=== PATIENT | female | born 1980 | race Caucasian/White ===

== ENCOUNTER → 2017-08-27 09:18 | Outpatient (CLI) | payer OTHER, MEDICAID, SELFPAY ==
--- NOTE | 2017-08-27 | DI.US.S_ITS ---
PROCEDURE: US ABDOMEN COMPLETE INDICATIONS: HEPATOMEGALY TECHNIQUE: Real-time scanning was performed of the abdominal and retroperitoneal organs, with image documentation. COMPARISON: [facility], CT, KIDNEY/ URETER/BLADDER, 12/04/2016, 12:27. FINDINGS: Liver: The liver is normal in size. Within the right hepatic lobe, there is a 2.2 x 2.0 x 2.1 cm structure that has a somewhat heterogeneous appearance, but is noted to be rounded, unchanged since the prior study. In the posterior segment of the right hepatic lobe there is also a 1.4 cm lesion identified, which is echogenic. Gallbladder: The gallbladder is surgically absent. Biliary ducts: Intrahepatic bile ducts are non-dilated. Extrahepatic bile duct caliber measures 7 mm. Normal is 6-7 mm or less in diameter, or 10 mm or less post-cholecystectomy. Pancreas: Visualized portions of the pancreas are sonographically normal. Spleen: The spleen is mildly enlarged at 12.5 cm in length. Kidneys: Kidneys are normal in size and echotexture. Right kidney measures 12.2 cm long; left kidney measures 11.4 cm long. No hydronephrosis or nephrolithiasis. No solid masses. Aorta: Visualized aorta is normal in caliber at less than 3 cm. Iliacs: Proximal common iliac arteries are normal in caliber at less than 2.5 cm. IVC: Intrahepatic inferior vena cava is patent. Miscellaneous: No free abdominal fluid. IMPRESSION: 1. Hepatic hemangiomas do not appear to have significantly changed in size. 2. Mild enlargement of the spleen. 2. No hydronephrosis. Dictated by: Carlito Pleitez M.D. on 08/27/2017 at 11:04 Approved by: Carlito Pleitez M.D. on 08/27/2017 at 11:06
== END ==
PROVIDERS: Family Provider Physician Assistant; PCP Physician Assistant; Visit Provider Internal Medicine Gastroenterology
DX: D18.03 Hemangioma of intra-abdominal structures (principal); R16.1 Splenomegaly, not elsewhere classified
CPT/HCPCS: 76700

== ENCOUNTER → 2017-12-18 13:40 | Outpatient (CLI) | payer OTHER, MEDICAID, SELFPAY ==
--- NOTE | 2017-12-18 | DI.MRI.S_ITS ---
PROCEDURE: MR ABDOMEN WO CON INDICATIONS: Lumbago with sciatica, abdomial pain TECHNIQUE: Coronal HASTE through the abdomen, axial 2-D FLASH in- and [id number], and breath-hold T2 FSE with fat saturation through the biliary system and pancreas. Oblique coronal and axial thin-slice HASTE, radial thick-slab HASTE centered on the extrahepatic bile ducts. Intravenous secretin: Not requested. COMPARISON: [facility], CT, ABDOMEN WITHOUT CONTRAST, 01/16/2016, 14:12. [facility], CT, ABDOMEN/PELVIS WITHOUT CONTRAS, 07/17/2016, 12:38. [facility], CT, KIDNEY/ URETER/BLADDER, 12/04/2016, 12:27. [facility], US, US ABDOMEN COMPLETE, 08/27/2017, 9:37. FINDINGS: Image quality: Excellent. Pancreas and biliary system: Intra- and extra-hepatic biliary ducts are non dilated. Pancreas is normal in morphology, without adjacent soft tissue edema. Pancreatic duct is normal in caliber, without developmental anomalies. Gallbladder appears previously resected. Other solid organs: Liver is normal in size. There is a high signal small focus within the right anterior hepatic segment superiorly measuring up to 1 cm, consistent with a small hemangioma by appearance and which can be identified on prior CT scanning including in January of 2016. Additionally there is a second fluid signal ovoid structure at the slightly more inferior left hepatic lobe medial segment anteriorly which is mildly lobulated and measures up to 2.2 cm. This also has been previously present without change management lead time on multiple prior CT scans and also seen by ultrasound Spleen is normal in size. No adrenal nodules. Both kidneys are normal in size, without hydronephrosis. Nodes and vessels: No retroperitoneal or mesenteric adenopathy by size criteria. Aorta and inferior vena cava are normal in size. Bowel and peritoneum: Unenhanced bowel loops are normal in caliber. No free fluid. Lung bases: No basal pleural effusions. Heart size is normal. Bones and soft tissues: No ventral hernias. Bone marrow is of normal overall signal. IMPRESSION: Prior cholecystectomy. No inflammatory process seen. Through the bile ducts no gallstone is suspected. A source of reported persistent abdominal pain is not found. Within the liver parenchyma there have been previously identified small cysts and what appears to be a single 1 cm hemangioma within the right anterior hepatic segment near the junction with the left medial hepatic segment. More inferiorly near the axial level of the left main portal vein there is a lobulated cyst measuring up to 2.2 cm which contains low-level internal echoes on prior ultrasound imaging. This structures have been present since at least January of 2016 without change and requiring no additional followup. Dictated by: Marshal Yun M.D. on 12/18/2017 at 16:29 Approved by: Marshal Yun M.D. on 12/18/2017 at 16:36
== END ==
PROVIDERS: PCP Student in an Organized Health Care Education/Training Program; Visit Provider Internal Medicine Gastroenterology
DX: R10.13 Epigastric pain (principal); M54.40 Lumbago with sciatica, unspecified side; K76.89 Other specified diseases of liver; Z90.49 Acquired absence of other specified parts of digestive tract
CPT/HCPCS: 74181

== ENCOUNTER → 2018-02-02 17:03 | Outpatient (CLI) | payer OTHER, MEDICAID, SELFPAY ==
--- NOTE | 2018-02-02 17:06 | DI.MRI.S_ITS ---
PROCEDURE: MR LUMBAR SPINE WO CON INDICATIONS: OTHER INTERVERTEBRAL DISC DEGENERATION, LUMB REG TECHNIQUE: Noncontrast sagittal T1 spin echo and T2 fast echo, sagittal STIR, axial T1 and T2 fast spin echo through the lumbar spine. In cases with scoliosis, additional coronal T2 fast spin echo may be performed. COMPARISON: [facility], MR, L-SPINE WITHOUT CONTRAST, 02/29/2016, 16:37. FINDINGS: Image quality: Excellent. Alignment and Curvature: There is normal bony alignment. Bone Marrow: Marrow is of normal overall signal. No acute vertebral body compression fractures. Spinal Cord: Conus medullaris terminates at the L1-L2 level. Visualized cord demonstrates normal signal and size. Paraspinous Soft Tissues: No paravertebral masses. L1-L2: Normal appearance. L2-L3: Normal appearance. L3-L4: Normal appearance. L4-L5: Posterior annular fissure and broad-based posterior disc bulge. Bilateral facet arthropathy with ligamentum flavum hypertrophy. Moderate central canal narrowing, unchanged. There is also symmetric appearing partial effacement of the lateral recesses, unchanged. Mild left and right foraminal stenoses, slightly progressed on the right since the prior study. L5-S1: Broad-based posterior disc bulge and bilateral facet arthropathy. Mild canal narrowing which appears unchanged. Mild symmetric bilateral partial effacement of the lateral recesses as before. No foraminal stenoses IMPRESSION: Lower lumbar degenerative disc disease, with slight interval progression in mild right L4-L5 foraminal stenoses since 02/29/16. Elsewhere, grossly unchanged examination. Dictated by: Marko Whitaker M.D. on 02/03/2018 at 9:04 Approved by: Marko Whitaker M.D. on 02/03/2018 at 9:10
== END ==
PROVIDERS: PCP Student in an Organized Health Care Education/Training Program; Visit Provider Physical Medicine & Rehabilitation
DX: M51.36 Other intervertebral disc degeneration, lumbar region (principal); M48.061 Spinal stenosis, lumbar region without neurogenic claudication
CPT/HCPCS: 72148

== ENCOUNTER 2018-02-23 08:54 | Outpatient (CLI) | payer OTHER, SELFPAY ==
[2018-02-23] VITALS (7 sets, daily range): BP systolic 101–125; BP diastolic 43–89; PULSE 72–91; RESP 16–18; TEMP 37.1; O2SAT 98–100
--- NOTE | 2018-02-23 08:56 | DI.RAD.S_ITS ---
PROCEDURE: PAIN L/S TRANSFORAMINAL INJECT INDICATIONS: INTERVERTEBRAL DISC DEGENERATION FINDINGS: Fluoroscopic spot filming was performed to verify placement of spinal needles at the L4-L5 level(s), as labeled on the films. Appropriate location(s) of the needle tip(s) was confirmed by injection of iodinated contrast. Dictated by: Marko Whitaker M.D. on 02/23/2018 at 16:32 Approved by: Marko Whitaker M.D. on 02/23/2018 at 16:33
[2018-02-23] MEDS: MIDAZOLAM 5 MG/5 ML VIAL IV (09:55)
[2018-02-23] MEDS: IOPAMIDOL 15 ML VIAL 3 ML INJ (10:03)
[2018-02-23] MEDS: BUPIVACAINE 0.25% (PF) VIAL 2 ML INJ (10:04)
[2018-02-23] MEDS: DEXAMETHASONE 10 MG/ML VIAL 20 MG INJ (10:05)
[2018-02-23] MEDS: methylPREDNISolone acetate 80 MG/ML VIAL INJ (10:05)
--- NOTE | 2018-02-23 10:16 | PM.PROC.1 ---
Procedures Date/Time Date of procedure: 02/23/18 Time of procedure: 10:16 General Procedure description: PREOP DIAGNOSIS 1. FORMAINAL STENOSIS WITH LE SYMPTOMS POST OP DIAGNOSIS 1. FORMAINAL STENOSIS WITH LE SYMPTOMS PROCEDURES 1. FLUOROSCOPICALLY GUIDED CONTRAST CONTROLLED TRANSFORAMINAL EPIDURAL STEROID INJECTION - RIGHT L4/5 TFESI PHYSICIAN: Stephan Carrillo DO INDICATIONS: Amish is referred by for treatment of HNP with Right LE Symptoms FINDINGS Foraminal Nerve Root Compression secondary to disc disease and facet hypertrophy DESCRIPTION OF PROCEDURE: Following denial of allergy and review of potential side effects and complications, including, but not necessarily limited to, infection, allergic reaction, local tissue breakdown, stroke, temporary or permanent nerve injury, paralysis, and possible , the patient indicated that the patient understood and agreed to proceed. An informed consent document was signed by the patient, witnessed by a nurse, and placed in the patient's chart. Additionally, other treatment options including medications, modalities, and physical therapy were reviewed with the patient. After review of previous anaesthesic history and IV conscious sedation the patient was deemed safe to proceed with todays procedure with IV conscious sedation as ASA class II designation. Safety time-out was performed to confirm patient ID, procedure to be performed and site of procedure. IV sedation was accomplished with a combination of 4mg of Versed was administered by the RN after DO order, titrated to patient comfort during the course of the procedure while the patient remained responsive to all verbal commands In the prone position following sterile prep and drape of the lumbar region, the Right L4/5 posterior neuroforamen was identified fluoroscopically. The skin was anesthetized via a 25-gauge 1.5-inch needle with 1% lidocaine solution. At this point, a 25-gauge 3.5-inch spinal needle was atraumatically introduced and advanced under fluoroscopic guidance through the posterior Right L4/5 neuroforamen to approximately the anterior aspect of the canal. Depth was confirmed on lateral view. Following negative aspiration, injection of approximately 1.5 cc of Isovue 200 under live fluoroscopy in the AP view confirmed excellent flow along the nerve root, into the epidural space without vascular or intrathecal uptake observed Radiological data, including multiple fluoroscopic views of the lumbosacral spine, reveal a spinal needle at the right L4/5 posterior neuroforamen. Subsequent views show flow of contrast material flowing superiorly and inferiorly along the nerve root confirming epidural flow. Subsequently, a test dose of 1.5 cc of 1% lidocaine solution was administered and patient was observed for two minutes for signs or symptoms of complications, including abdominal pain, shortness of breath, bilateral upper or lower extremity weakness, nausea and vomiting, prior to steroid injection. At this point, a total of 3 cc or 20 mg of dexamethasone and 80mg Depo Medrol was injected without incident. The procedure tolerated the procedure well without signs or symptoms of complications prior to transfer to the recovery area continued monitoring without incident.The patient was then transferred to the recovery area where they were observed for an appropriate time after the injection. The patient reported a VAS score of 7 prior to the procedure and a post-procedure VAS of 0. Total Fluoroscopy Time: 20.9 seconds Total Conscious Sedation Time: 24min POST OP INSTRUCTIONS The patient was provided a Pain Log to continue to record their response to the target-specific procedure prior to follow-up visit with their referring physician. Additionally, specific post-injection care instructions and a contact number to our office were provided if concerns arise regarding possible complications associated with the procedure are suspected. Stephan Carrillo DO Complications: none
--- NOTE | 2018-02-23 11:04 | P.PCN_ITS ---
Procedures Date/Time Date of procedure: 02/23/18 Time of procedure: 11:03 General Procedure description: PREOP DIAGNOSIS 1. FORMAINAL STENOSIS WITH LE SYMPTOMS POST OP DIAGNOSIS 1. FORMAINAL STENOSIS WITH LE SYMPTOMS PROCEDURES 1. FLUOROSCOPICALLY GUIDED CONTRAST CONTROLLED TRANSFORAMINAL EPIDURAL STEROID INJECTION - RIGHT L4/5 TFESI PHYSICIAN: Stephan Carrillo DO INDICATIONS: Amish is referred by for treatment of Foraminal Stenosis with Right LE Symptoms FINDINGS Foraminal Nerve Root Compression secondary to disc disease and facet hypertrophy DESCRIPTION OF PROCEDURE: Following denial of allergy and review of potential side effects and complications, including, but not necessarily limited to, infection, allergic reaction, local tissue breakdown, stroke, temporary or permanent nerve injury, paralysis, and possible , the patient indicated that the patient understood and agreed to proceed. An informed consent document was signed by the patient, witnessed by a nurse, and placed in the patient's chart. Additionally, other treatment options including medications, modalities, and physical therapy were reviewed with the patient. After review of previous anaesthesic history and IV conscious sedation the patient was deemed safe to proceed with todays procedure with IV conscious sedation as ASA class II designation. Safety time-out was performed to confirm patient ID, procedure to be performed and site of procedure. IV sedation was accomplished with a combination of 4mg of Versed was administered by the RN after DO order, titrated to patient comfort during the course of the procedure while the patient remained responsive to all verbal commands In the prone position following sterile prep and drape of the lumbar region, the Right L4/5 posterior neuroforamen was identified fluoroscopically. The skin was anesthetized via a 25-gauge 1.5-inch needle with 1% lidocaine solution. At this point, a 25-gauge 3.5-inch spinal needle was atraumatically introduced and advanced under fluoroscopic guidance through the posterior Right L4/5 neuroforamen to approximately the anterior aspect of the canal. Depth was confirmed on lateral view. Following negative aspiration, injection of approximately 1.5 cc of Isovue 200 under live fluoroscopy in the AP view confirmed excellent flow along the nerve root, into the epidural space without vascular or intrathecal uptake observed Radiological data, including multiple fluoroscopic views of the lumbosacral spine, reveal a spinal needle at the right L4/5 posterior neuroforamen. Subsequent views show flow of contrast material flowing superiorly and inferiorly along the nerve root confirming epidural flow. Subsequently, a test dose of 1.5 cc of 1% lidocaine solution was administered and patient was observed for two minutes for signs or symptoms of complications , including abdominal pain, shortness of breath, bilateral upper or lower extremity weakness, nausea and vomiting, prior to steroid injection. At this point, a total of 3 cc or 20 mg of dexamethasone and 80mg Depo Medrol was injected without incident. The procedure tolerated the procedure well without signs or symptoms of complications prior to transfer to the recovery area continued monitoring without incident.The patient was then transferred to the recovery area where they were observed for an appropriate time after the injection. The patient reported a VAS score of 7 prior to the procedure and a post- procedure VAS of 0. Total Fluoroscopy Time: 20.9 seconds Total Conscious Sedation Time: 24min POST OP INSTRUCTIONS The patient was provided a Pain Log to continue to record their response to the target-specific procedure prior to follow-up visit with their referring physician. Additionally, specific post-injection care instructions and a contact number to our office were provided if concerns arise regarding possible complications associated with the procedure are suspected. Stephan Carrillo DO Complications: none
--- NOTE | 2018-02-23 12:29 | PC.NURSE ---
procedure ended at 10:11 and pt assisted off table with 2 persons standby, her right leg was still a little numb. She was then transferred via W/C to preprocedure room where care was resumed by Alicia LORENZANA.
--- NOTE | 2018-02-24 16:46 | PC.NURSE ---
Follow up call made but pt not available so I left a message to call the office is she has any questions or concerns.
== END 2018-02-23 11:22 | disposition home or self-care (01) ==
LOC: RAD 08:55
PROVIDERS: PCP Student in an Organized Health Care Education/Training Program; Visit Provider Physical Medicine & Rehabilitation
DX: M48.061 Spinal stenosis, lumbar region without neurogenic claudication (principal); M51.16 Intervertebral disc disorders with radiculopathy, lumbar region
CPT/HCPCS: 64483; 99152; J1040; J1100; J2250

== ENCOUNTER → 2018-04-28 16:17 | Outpatient (CLI) | payer OTHER, SELFPAY ==
[2018-04-28 16:28] LABS: Bacteria Urine None Seen; RBC Urine None Seen (0-5/HPF)
[2018-04-28 17:38] LABS: Appearance Urine UA CLEAR; Bilirubin Urine UA NEGATIVE (NEGATIVE); Color Urine UA YELLOW; Glucose Urine UA NEGATIVE (Negative); Ketones Urine UA NEGATIVE (NEGATIVE); Leukocyte Esterase Urine UA NEGATIVE (NEGATIVE); Nitrite Urine UA NEGATIVE (Negative); Occult Blood Urine UA NEGATIVE (Negative); Protein Urine UA NEGATIVE (Negative); Specific Gravity Urine UA >=1.030 (1.000-1.035); Urobilinogen Urine UA 0.2 E.U./dL (0.2)
[2018-04-28 17:45] LABS: Squamous Epithelial Cell Urine 5-10 /HPF; WBC Urine 1-5/HPF (0-5/HPF)
[2018-04-28 17:46] LABS: Culture Indicated Urine Cult Not Indicated
[2018-04-28 18:07] LABS: Alanine Aminotransferase 25 IU/L (9-52); Albumin 4.2 g/dL (3.5-5.0); Albumin Globulin Ratio 1.8 (1.0-2.8); Alkaline Phosphatase 64 U/L (38-126); Aspartate Aminotransferase 11 IU/L (14-36); BUN Creatinine Ratio 17.1 (6-22); Bilirubin Total < 0.1 mg/dL (0.2-1.3); Blood Urea Nitrogen 12 mg/dL (7-17); Calcium 9.1 mg/dL (8.4-10.2); Carbon Dioxide 28 mmol/L (22-32); Chloride 101 mmol/L (98-107); Estimated Glomerular Filt Rate > 60.0 mL/min (>60); Globulin 2.4 g/dL (1.7-4.1); Glucose 83 mg/dL (70-100); HEMOLYSIS < 15 (0-50); Potassium 4.3 mmol/L (3.4-5.1); Sodium 141 mmol/L (137-145); Total Protein 6.6 g/dL (6.3-8.2)
== END ==
PROVIDERS: PCP Student in an Organized Health Care Education/Training Program; Visit Provider Internal Medicine Gastroenterology
DX: R35.0 Frequency of micturition (principal)
CPT/HCPCS: 36415; 80053; 81001; 83036

== ENCOUNTER → 2018-07-09 09:54 | Outpatient (CLI) | payer OTHER, SELFPAY ==
--- NOTE | 2018-07-09 09:56 | DI.US.S_ITS ---
PROCEDURE: US ABDOMEN COMPLETE INDICATIONS: FOLLOW UP KNOWN LESIONS ON LIVER AND KIDNEYS TECHNIQUE: Real-time scanning was performed of the abdominal and retroperitoneal organs, with image documentation. COMPARISON: [facility], MR, MR ABDOMEN WO CON, 12/18/2017, 14:08. [facility], CT, KIDNEY/ URETER/BLADDER, 12/04/2016, 12:27. FINDINGS: Liver: The liver demonstrates a coarse echotexture throughout. A hypoechoic mass is present within the right hepatic lobe which measures 2.2 x 1.7 x 2.2 cm and previously measured 2.2 x 2.0 x 2.1 cm on the ultrasound dated 08/2017). A focal hyperechoic mass within the posterior right hepatic lobe measures 0.6 x 0.4 x 0.4 cm and previously measured 1.4 x 1.0 x 1.0 cm. These most likely represent hepatic hemangiomas. Gallbladder: The gallbladder is surgically absent. Biliary ducts: Intrahepatic bile ducts are non-dilated. Extrahepatic bile duct caliber measures 8 mm. Normal is 6-7 mm or less in diameter, or 10 mm or less post-cholecystectomy. Pancreas: Visualized portions of the pancreas are sonographically normal. Spleen: Spleen is normal in size and homogeneous in echotexture. A small splenule is present at the splenic hilum. Kidneys: Kidneys are normal in size and echotexture. Right kidney measures 12.8 cm long; left kidney measures 11.7 cm long. No hydronephrosis or nephrolithiasis. No solid masses. Aorta: Visualized aorta is normal in caliber at less than 3 cm. Iliacs: Proximal common iliac arteries are normal in caliber at less than 2.5 cm. IVC: Intrahepatic inferior vena cava is patent. Miscellaneous: No free abdominal fluid. IMPRESSION: 1. Stable hepatic hemangiomas. No further followup recommended. Otherwise unremarkable abdominal ultrasound. Dictated by: Taryn Tamayo M.D. on 07/09/2018 at 17:26 Approved by: Taryn Tamayo M.D. on 07/09/2018 at 17:31
== END ==
LOC: US 09:55
PROVIDERS: PCP Student in an Organized Health Care Education/Training Program; Visit Provider Student in an Organized Health Care Education/Training Program
DX: D18.09 Hemangioma of other sites (principal); K92.2 Gastrointestinal hemorrhage, unspecified; R16.0 Hepatomegaly, not elsewhere classified; N28.89 Other specified disorders of kidney and ureter
CPT/HCPCS: 76700

== ENCOUNTER → 2019-07-27 09:42 | Outpatient (CLI) | payer OTHER, SELFPAY ==
[2019-07-27 11:48] LABS: BUN Creatinine Ratio 11.3 (6-22); Blood Urea Nitrogen 8 mg/dL (7-17); Estimated Glomerular Filt Rate > 60.0 mL/min (>60)
== END ==
PROVIDERS: PCP Student in an Organized Health Care Education/Training Program; Referring Provider Student in an Organized Health Care Education/Training Program; Visit Provider Student in an Organized Health Care Education/Training Program
DX: Z79.899 Other long term (current) drug therapy (principal)
CPT/HCPCS: 36415; 82565; 84520

== ENCOUNTER → 2020-09-24 18:52 | Outpatient (CLI) | payer OTHER, SELFPAY ==
--- NOTE | 2020-09-24 18:54 | DI.MRI.S_ITS ---
PROCEDURE: MR WRIST RT WO CON INDICATIONS: Eval recent injury; L I claim [id number] TECHNIQUE: Noncontrast coronal proton density fast spin echo and T2 fast spin echo with fat saturation; coronal 3-D gradient echo, axial T1 spin echo and T2 fast spin echo with fat saturation, sagittal T1 spin echo through the wrist. COMPARISON: [facility], MR, WRIST WITHOUT CONTRAST, 10/09/2011, 15:31. FINDINGS: Image quality: Excellent. Bones and cartilage: The carpal bones are normally aligned. No acute bone marrow contusions or fractures. No evidence for avascular necrosis. Mild degenerative spurring is seen at the 1st carpometacarpal joint. Small focus of T2-hyperintense signal at the proximal ulnar aspect of the lunate is most likely degenerative, although a mild subacute or chronic impaction injury could appear similarly. There is minimal negative ulnar variance. Focal cartilage loss is seen at the hamatolunate articulation without edema. Carpal ligaments: The scapholunate and lunotriquetral ligaments appear intact. Triangular fibrocartilage complex: The triangular fibrocartilage appears intact. Tendons and soft tissues: The carpal tunnel structures appear normal, including the median nerve. The ulnar nerve appears normal within Guyon's canal. There is moderate tendinosis of the extensor pollicis brevis tendon. The abductor pollicis longus tendon is normal in size within the 1st compartment. There is also increased signal within the extensor pollicis longus tendon in the 3rd compartment, compatible with tendinosis. The extensor carpi ulnaris tendon is flattened with minimal volar subluxation, compatible with tendinosis and possible prior injury to the subsheath. No raul tendon dislocation is seen. No soft tissue ganglion cysts. IMPRESSION: 1. Moderate tendinosis of the extensor pollicis brevis tendon. 2. Mild tendinosis of the extensor pollicis longus tendon. 3. Moderate extensor carpi ulnaris tendinosis with slight volar subluxation that may indicate a prior injury to the subsheath. The appearance is similar when compared to the prior MRI from 10/09/2011. 4. Mild degenerative changes at the 1st carpometacarpal joint Dictated by: Maximo Jorge M.D. on 09/25/2020 at 8:37 Approved by: Maximo Jorge M.D. on 10/04/2020 at 11:51
== END ==
PROVIDERS: PCP Student in an Organized Health Care Education/Training Program; Referring Provider Student in an Organized Health Care Education/Training Program; Visit Provider Student in an Organized Health Care Education/Training Program
DX: S69.91XA Unspecified injury of right wrist, hand and finger(s), initial encounter (principal); X58.XXXA Exposure to other specified factors, initial encounter
CPT/HCPCS: 73221

== ENCOUNTER → 2020-12-31 09:53 | Outpatient (CLI) | payer OTHER, SELFPAY ==
--- NOTE | 2020-12-31 09:55 | DI.RAD.S_ITS ---
PROCEDURE: XR CERVICAL SPINE 4V OR 5V INDICATIONS: NECK PAIN TECHNIQUE: 5 views of the cervical spine acquired. COMPARISON: None. FINDINGS: Bones: No fractures or dislocations to the C7 level. Oblique images demonstrate no bony foraminal stenoses. Soft tissues: No prevertebral soft tissue swelling. IMPRESSION: No acute abnormality. Dictated by: Osmany Lan M.D. on 12/31/2020 at 11:04 Approved by: Osmany Lan M.D. on 12/31/2020 at 11:05
--- NOTE | 2020-12-31 09:55 | DI.RAD.S_ITS ---
PROCEDURE: XR SHOULDER RT MIN 2V INDICATIONS: RIGHT SHOULDER PAIN TECHNIQUE: 3 views of the shoulder were acquired. COMPARISON: [facility] [place], CR, XR SHOULDER MIN 2VW RT, 07/13/2015, 12:07. FINDINGS: Bones: No fractures or dislocations. Mild acromioclavicular joint osteoarthritic changes are seen. No suspicious bony lesions. Visualized ribs appear intact. Soft tissues: No suspicious soft tissue calcifications. IMPRESSION: Mild acromioclavicular joint osteoarthritis. No shoulder fracture or dislocation. No gross soft tissue abnormality. Dictated by: Navin Henderson M.D. on 12/31/2020 at 11:21 Approved by: Navin Henderson M.D. on 12/31/2020 at 11:21
== END ==
PROVIDERS: PCP Student in an Organized Health Care Education/Training Program; Referring Provider Physical Medicine & Rehabilitation; Visit Provider Physical Medicine & Rehabilitation
DX: M25.511 Pain in right shoulder (principal); M19.011 Primary osteoarthritis, right shoulder; M75.41 Impingement syndrome of right shoulder; M50.30 Other cervical disc degeneration, unspecified cervical region; M51.36 Other intervertebral disc degeneration, lumbar region; S69.91XD Unspecified injury of right wrist, hand and finger(s), subsequent encounter
CPT/HCPCS: 20611; 72050; 73030; 99215; J0702

== ENCOUNTER → 2021-02-06 13:17 | Outpatient (CLI) | payer OTHER, SELFPAY ==
[2021-02-06 14:35] LABS: Add Manual Diff / Slide Review NO; Basophils Absolute Auto 100 /uL (0-100); Basophils Percent Auto 0.7 % (0-2); Eosinophils Absolute Auto 300 /uL (0-450); Eosinophils Percent Auto 2.9 % (2-4); Hematocrit 39.7 % (36-46); Hemoglobin 13.5 g/dL (12.0-16.0); Lymphocytes Absolute Auto 2600 /uL (1100-4500); Lymphocytes Percent Auto 26.6 % (25-40); Mean Corpuscular HGB Conc 34.1 % (30-36); Mean Corpuscular Hemoglobin 30.2 PG (26-34); Mean Corpuscular Volume 88.7 fL (80-100); Monocytes Absolute Auto 700 /uL (0-900); Monocytes Percent Auto 7.7 % (3-14); Neutrophils Absolute Auto 6000 /uL (1500-7000); Neutrophils Percent Auto 62.1 % (50-75); Platelet Count 302 X10^3/uL (150-400); Red Blood Cell Count 4.48 X10^6/uL (4.0-5.2); Red Cell Distribution Width 13.4 % (11.6-14.8); White Blood Cell Count 9.6 X10^3/uL (4.5-11.0)
[2021-02-06 14:59] LABS: Bilirubin Urine UA NEGATIVE (NEGATIVE); Color Urine UA RED; Glucose Urine UA NEGATIVE (Negative); Ketones Urine UA NEGATIVE (NEGATIVE); Leukocyte Esterase Urine UA TRACE (NEGATIVE); Nitrite Urine UA NEGATIVE (Negative); Occult Blood Urine UA 3+ (Negative); Protein Urine UA 3+ (Negative); Specific Gravity Urine UA >=1.030 (1.000-1.035); Urobilinogen Urine UA 0.2 E.U./dL (0.2)
[2021-02-06 15:00] LABS: pH Urine UA 5.5 (4.5-8.0)
[2021-02-06 15:03] LABS: Appearance Urine UA OTHER
[2021-02-06 15:05] LABS: RBC Urine >100/HPF (0-5/HPF); WBC Urine 1-5/HPF (0-5/HPF)
[2021-02-06 15:06] LABS: Amorphous Sediment Urine 1+; Bacteria Urine Occasional (0-1); Culture Indicated Urine Specimen Cultured; Squamous Epithelial Cell Urine 5-10 /HPF (0-5/HPF)
== END ==
PROVIDERS: PCP Student in an Organized Health Care Education/Training Program; Referring Provider Obstetrics & Gynecology; Visit Provider Obstetrics & Gynecology
DX: R53.83 Other fatigue (principal); R35.0 Frequency of micturition; R30.0 Dysuria
CPT/HCPCS: 36415; 81001; 85025; 87086

== ENCOUNTER 2021-03-06 15:28 | Emergency (ER) | payer OTHER, SELFPAY ==
[2021-03-06 15:35] VITALS: BP 138/64; PULSE 97; RESP 15; TEMP 36.8; O2SAT 100; BMI 25.0
[2021-03-06 16:05] LABS: COVID19 -Nasal RAPID Negative (Negative)
[2021-03-06 19:27] VITALS: BP 108/70; PULSE 81; TEMP 36.7; O2SAT 99
[2021-03-06 21:07] LABS: Add Manual Diff / Slide Review NO; Basophils Absolute Auto 100 /uL (0-100); Basophils Percent Auto 0.6 % (0-2); Eosinophils Absolute Auto 200 /uL (0-450); Eosinophils Percent Auto 2.4 % (2-4); Hematocrit 42.1 % (36-46); Hemoglobin 13.9 g/dL (12.0-16.0); Lymphocytes Absolute Auto 2300 /uL (1100-4500); Lymphocytes Percent Auto 25.5 % (25-40); Mean Corpuscular HGB Conc 33.1 % (30-36); Mean Corpuscular Hemoglobin 29.8 PG (26-34); Mean Corpuscular Volume 89.9 fL (80-100); Monocytes Absolute Auto 400 /uL (0-900); Monocytes Percent Auto 4.1 % (3-14); Neutrophils Absolute Auto 6100 /uL (1500-7000); Neutrophils Percent Auto 67.4 % (50-75); Red Blood Cell Count 4.68 X10^6/uL (4.0-5.2); Red Cell Distribution Width 13.4 % (11.6-14.8); White Blood Cell Count 9.1 X10^3/uL (4.5-11.0)
[2021-03-06 21:16] LABS: Alanine Aminotransferase 83 IU/L (<35); Albumin 4.4 g/dL (3.5-5.0); Albumin Globulin Ratio 1.5 (1.0-2.8); Alkaline Phosphatase 64 U/L (38-126); Aspartate Aminotransferase 40 IU/L (14-36); BUN Creatinine Ratio 25.4 (6-22); Bilirubin Total 0.4 mg/dL (0.2-1.3); Blood Urea Nitrogen 16 mg/dL (7-17); Carbon Dioxide 28 mmol/L (22-32); Chloride 106 mmol/L (98-107); Estimated Glomerular Filt Rate > 60.0 mL/min (>60); Globulin 2.9 g/dL (1.7-4.1); Glucose 99 mg/dL (70-100); HEMOLYSIS 61 (0-50); Potassium 4.2 mmol/L (3.4-5.1); Sodium 140 mmol/L (137-145); Total Protein 7.3 g/dL (6.3-8.2)
[2021-03-06 21:31] LABS: Platelet Count 154 X10^3/uL (150-400)
--- NOTE | 2021-03-06 21:49 | DI.CT.S_ITS ---
PROCEDURE: CT ABDOMEN PELVIS W CON INDICATIONS: severe abdomen and pelvic pain TECHNIQUE: After the administration of oral and IV contrast, axial sections were acquired from the lung bases to the pubic symphysis. Coronal and sagittal reformats were performed. For radiation dose reduction, the following was used: automated exposure control, adjustment of mA and/or kV according to patient size. COMPARISON: [facility], CT, KIDNEY/ URETER/BLADDER, 12/04/2016, 12:27. MR, MR ABDOMEN WO CON, 12/18/2017, 14:08. US, US ABDOMEN COMPLETE, 07/09/2018, 10:31. FINDINGS: Image quality: Excellent. Lung bases: Unremarkable. Heart: No significant findings. ABDOMEN: Liver: Liver is enlarged measuring 22.0 cm. Diffuse steatosis is present. Low-attenuation foci remain present within the liver as previously identified without change. Gallbladder: The gallbladder has been removed. Biliary ducts: Unremarkable. Pancreas: Unremarkable. Spleen: Unremarkable. Adrenal Glands: Unremarkable. Kidneys and Ureters: Unremarkable. Stomach and Bowel: Stomach, small bowel loops, and colon are unremarkable. The appendix is normal. Peritoneum: No abnormal intraperitoneal fluid. No free air. Ventral Wall: No hernia. Abdominal Nodes: No retroperitoneal or mesenteric adenopathy by size criteria. Vessels: Aorta and inferior vena cava are normal in size. PELVIS: Pelvic Organs: Unremarkable. Bladder: Unremarkable. Pelvic Nodes: No enlarged lymph nodes. Miscellaneous: No inguinal hernias are seen. Bones: Unremarkable. IMPRESSION: 1. No visualized acute abdominal or pelvic process. 2. Hepatomegaly with steatosis. Low-attenuation hepatic foci are unchanged compared to prior exams. Dictated by: Isabelle Long M.D. on 03/06/2021 at 23:02 Approved by: Isabelle Long M.D. on 03/06/2021 at 23:07
--- NOTE | 2021-03-06 21:49 | ED.FEMALEGU ---
HPI - Female Genitourinary General Chief complaint: Vaginal Bleeding Stated complaint: heavy vag bleeding, Covid + Time Seen by Provider: 03/06/21 19:07 Source: patient Mode of arrival: Ambulatory History of Present Illness HPI Narrative: 40-year-old female daily smoker with history of vaginal prolapse presents with a chief complaint of heavy vaginal bleeding and lower pelvic pain for many days. She states that over the course of that time she has been saturating over a pad per hour more often than not. She has significant pelvic pain persistently and certainly with any time she eats. She has a known history of prolapse and has been referred to the [facility]. She had spoken with her statistics teacher today and was encouraged to presents to the emergency department for further evaluation. She denies any runny nose, sore throat no fevers, chills or cough Related Data Home Medications Medication Instructions Recorded Confirmed sennosides 8.6 mg-docusate sodium 1 tab-cap PO DAILY cap 07/03/20 02/07/21 50 mg capsule (Senna Plus) tobramycin 0.3 %-dexamethasone 0.1 1 drp EYE-BOTH Q6H PRN ml 12/31/20 02/07/21 % eye drops,suspension Previous Rx's Medication Instructions Recorded albuterol sulfate 90 mcg/actuation 2 puff INHALATION QIDP PRN #18 gram 01/19/19 aerosol inhaler (Ventolin HFA) gabapentin 600 mg tablet 600 mg PO TID #270 tab 03/20/20 alprazolam 0.5 mg tablet 0.5 mg PO BID PRN #60 tab 07/28/20 methylphenidate HCl 10 mg tablet 10 mg PO BID #60 tab 02/28/21 methylphenidate HCl 20 mg tablet 20 mg PO BID #60 tab 02/28/21 oxycodone 5 mg tablet 5 mg PO Q4-6H PRN #10 tab 03/07/21 Allergies Allergy/AdvReac Type Severity Reaction Status Date / Time tramadol Allergy Mild Hives Verified 02/07/21 11:33 hydromorphone [From DILAUDID] Allergy Unknown Verified 02/07/21 11:33 iodine [IODINE] Allergy Unknown Verified 02/07/21 11:33 latex [LATEX] Allergy Unknown Verified 02/07/21 11:33 morphine [MORPHINE] Allergy Unknown Verified 02/07/21 11:33 ketamine Allergy Verified 03/06/21 15:35 amoxicillin [From Augmentin] AdvReac Unknown yeast Verified 02/07/21 11:33 infection clavulanic acid AdvReac Unknown yeast Verified 02/07/21 11:33 [From Augmentin] infection Patient History Medical History Anemia (~2001) Chronic back pain (Unknown) Degenerative disc disease (Unknown) Eczema (1999) Fractures (2007) GERD (gastroesophageal reflux disease) (Unknown) Hepatic hemangioma Hx of jordan (Unknown) Narcolepsy (Unknown) Rotator cuff impingement syndrome of right shoulder Shoulder pain (2014) Surgical History Hx of elbow surgery (~2013) Hx of wrist replacement (~2011) Status post laparoscopic cholecystectomy Status post tubal ligation Family History Child Age: 18 Asthma Heart disease Child Age: 16 ADHD (attention deficit hyperactivity disorder) Child Age: 13 History of developmental delay Father Stroke Diabetes mellitus Mental health problem Grandfather Age: 84 Emphysema/COPD Grandmother Age: 78 Cancer Hypertension Mental health problem Mother Age: 58 Asthma Sister Age: 37 Methamphetamine addiction Asthma alcohol intake frequency: holidays/special occasions only Substance Use Type: marijuana Exam Narrative Exam Narrative: GENERAL: [40 year old patient appears stated age. Well-developed patient, in mild distress. Tearful, clearly in pain HEAD: Atraumatic. Normocephalic. EYES: Pupils equal round and reactive. Extraocular motions intact. No scleral icterus. No injection or drainage. ENT: Nose without bleeding, purulent drainage. Throat without erythema, tonsillar hypertrophy or exudate. Airway patent. NECK: Trachea midline. Non tender CARDIOVASCULAR: Regular rate and rhythm without murmurs, gallops, or rubs. RESPIRATORY: Clear to auscultation. Breath sounds equal bilaterally. No wheezes, rales, or rhonchi. GASTROINTESTINAL: Abdomen soft, generally tender across the lower portion of her abdomen nondistended. EXTREMITIES: No edema or joint tenderness. BACK: Nontender without deformity or crepitance. No flank tenderness. NEURO: AOx3. SKIN: No rash or erythema of visible areas Initial Vital Signs Initial Vital Signs: Vital Signs Temperature 98.2 F 03/06/21 15:35 Pulse Rate 97 H 03/06/21 15:35 Respiratory Rate 15 03/06/21 15:35 Blood Pressure 138/64 03/06/21 15:35 Pulse Oximetry 100 03/06/21 15:35 Course Orders Ordered: ED Orders 03/06/21 20:20 Urine Culture Stat Urine Microscopic Stat 03/06/21 20:45 Complete Blood Count AUTO DIFF Stat Comprehensive Metabolic Panel Stat Type and Screen Stat 03/06/21 21:49 CT abdomen pelvis w con Stat 03/06/21 22:31 US pelvic complete Stat Discontinued Medications Diphenhydramine HCl (Diphenhydramine 50 Mg/Ml Vial) 25 mg IV NOW ONE Stop: 03/06/21 22:12 Last Admin: 03/06/21 22:18 Dose: 25 mg Documented by: GUIDO Hydromorphone HCl (Hydromorphone 0.5 Mg Inj) 0.5 mg IV NOW ONE Stop: 03/06/21 23:07 Last Admin: 03/06/21 23:10 Dose: 0.5 mg Documented by: GUIDO Sodium Chloride (Normal Saline 0.9%) 1,000 mls @ 1,000 mls/hr IV BOLUS ONE Stop: 03/06/21 22:48 Last Infusion: 03/06/21 23:50 Dose: 0 mls/hr Documented by: Admin: 03/06/21 21:57 Dose: 1,000 mls/hr Documented by: GUIDO Ketorolac Tromethamine (Ketorolac 30 Mg/Ml Vial) 15 mg IV NOW ONE Stop: 03/06/21 21:50 Last Admin: 03/06/21 22:01 Dose: 15 mg Documented by: GUIDO Methylprednisolone (Methylprednisolone 125 Mg/2 Ml Vial) 125 mg IV NOW ONE Stop: 03/06/21 22:12 Last Admin: 03/06/21 22:19 Dose: 125 mg Documented by: GUIDO Ondansetron HCl (Ondansetron 4 Mg/2 Ml Inj) 4 mg IV NOW ONE Stop: 03/06/21 21:50 Last Admin: 03/06/21 21:57 Dose: 4 mg Documented by: GUIDO Oxycodone/Acetaminophen (Oxycodone/Apap 5/325 Prepack) 1 bottle MISC SEEINSTR ONE Stop: 03/07/21 02:05 Last Admin: 03/07/21 02:07 Dose: 1 bottle Documented by: GUIDO Reevaluation(s) Reevaluation #1: Patient does report increased pain after pelvic ultrasound. She refuses pelvic exam, stating she would choose to defer to her OB doctor. Vital Signs Vital signs: Vital Signs - 8 hr 03/07/21 02:27 Pulse Rate 77 Respiratory Rate 16 Blood Pressure 136/57 L Pulse Oximetry 95 MDM - Female Genitourinary Lab Data Result diagrams: 03/06/21 20:45 03/06/21 20:45 Labs: Lab Results 03/06/21 03/06/21 03/06/21 Range/Units 15:38 20:20 20:45 WBC 9.1 (4.5-11.0) X10^3/uL RBC 4.68 (4.0-5.2) X10^6/uL Hgb 13.9 (12.0-16.0) g/dL Hct 42.1 (36-46) % MCV 89.9 (80-100) fL MCH 29.8 (26-34) PG MCHC 33.1 (30-36) % RDW 13.4 (11.6-14.8) % Plt Count 154 (150-400) X10^3/uL Neut % (Auto) 67.4 (50-75) % Lymph % (Auto) 25.5 (25-40) % [place] % (Auto) 4.1 (3-14) % Eos % (Auto) 2.4 (2-4) % Baso % (Auto) 0.6 (0-2) % Neut # (Auto) 6100 (4027-0624) /uL Lymph # (Auto) 2300 (3880-8852) /uL [place] # (Auto) 400 (0-900) /uL Eos # (Auto) 200 (0-450) /uL Baso # (Auto) 100 (0-100) /uL Sodium (137-145) mmol/L Potassium (3.4-5.1) mmol/L Chloride (98-107) mmol/L Carbon Dioxide (22-32) mmol/L BUN (7-17) mg/dL Creatinine (0.52-1.04) mg/dL Estimated GFR (>60) mL/min BUN/Creatinine Ratio (6-22) Glucose (70-100) mg/dL Calcium (8.4-10.2) mg/dL Total Bilirubin (0.2-1.3) mg/dL AST (14-36) IU/L ALT (<35) IU/L Alkaline Phosphatase (38-126) U/L Total Protein (6.3-8.2) g/dL Albumin (3.5-5.0) g/dL Globulin (1.7-4.1) g/dL Albumin/Globulin Ratio (1.0-2.8) Urine RBC 30-100/hpf H (0-5/HPF) Urine WBC 1-5/hpf (0-5/HPF) Ur Squamous Epith Cells 1-5 /hpf (0-5/HPF) Urine Bacteria Many (>30) H (None) Urine Mucus 1+ H (Negative) Ur Culture Indicated? Specimen cultured SARS-CoV-2 (PCR) Negative (Negative) Blood Type Antibody Screen 03/06/21 03/06/21 Range/Units 20:45 20:45 WBC (4.5-11.0) X10^3/uL RBC (4.0-5.2) X10^6/uL Hgb (12.0-16.0) g/dL Hct (36-46) % MCV (80-100) fL MCH (26-34) PG MCHC (30-36) % RDW (11.6-14.8) % Plt Count (150-400) X10^3/uL Neut % (Auto) (50-75) % Lymph % (Auto) (25-40) % [place] % (Auto) (3-14) % Eos % (Auto) (2-4) % Baso % (Auto) (0-2) % Neut # (Auto) (7306-7723) /uL Lymph # (Auto) (8362-8099) /uL [place] # (Auto) (0-900) /uL Eos # (Auto) (0-450) /uL Baso # (Auto) (0-100) /uL Sodium 140 (137-145) mmol/L Potassium 4.2 (3.4-5.1) mmol/L Chloride 106 (98-107) mmol/L Carbon Dioxide 28 (22-32) mmol/L BUN 16 (7-17) mg/dL Creatinine 0.63 (0.52-1.04) mg/dL Estimated GFR > 60.0 (>60) mL/min BUN/Creatinine Ratio 25.4 H (6-22) Glucose 99 (70-100) mg/dL Calcium 9.0 (8.4-10.2) mg/dL Total Bilirubin 0.4 (0.2-1.3) mg/dL AST 40 H (14-36) IU/L ALT 83 H (<35) IU/L Alkaline Phosphatase 64 (38-126) U/L Total Protein 7.3 (6.3-8.2) g/dL Albumin 4.4 (3.5-5.0) g/dL Globulin 2.9 (1.7-4.1) g/dL Albumin/Globulin Ratio 1.5 (1.0-2.8) Urine RBC (0-5/HPF) Urine WBC (0-5/HPF) Ur Squamous Epith Cells (0-5/HPF) Urine Bacteria (None) Urine Mucus (Negative) Ur Culture Indicated? SARS-CoV-2 (PCR) (Negative) Blood Type O Positive Antibody Screen Negative Point of Care Testing Test Results Negative Urine Dip Bedside Urine Glucose Negative Bedside Urine Bilirubin - Negative Bedside Urine Ketone - Negative Urine Specific [place] 1.030 Bedside Urine Occult Blood +++ Bedside Urine pH 6.0 Bedside Urine Protein ++ 100 Bedside Urine Urobilinogen - Negative Bedside Urine Nitrite - Negative Bedside Urine Leukocytes + [address] scan - abdomen/pelvis: Radiologist's Impression: [place] [address] CT Scan Report Signed Patient: Amish Tamez MR#: [id number] : 1980 Acct:[id number] Age/Sex: 40 / F Date of Service: 03/06/21 Loc: ED Accession Number: [id number] ?? Procedure: CT abdomen pelvis w con Ordering Provider: Baldemar Contreras D.O. PROCEDURE:? CT ABDOMEN PELVIS W CON ? INDICATIONS:? severe abdomen and pelvic pain ? TECHNIQUE:? After the administration of oral and IV contrast, axial sections were acquired from the lung bases to the pubic symphysis.? Coronal and sagittal reformats were performed.? For radiation dose reduction, the following was used:? automated exposure control, adjustment of mA and/or kV according to patient size. ? COMPARISON:? [facility], CT, KIDNEY/ URETER/BLADDER, 12/04/2016, 12:27.? MR, MR ABDOMEN WO CON, 12/18/2017, 14:08.? US, US ABDOMEN COMPLETE, 07/09/2018, 10:31. ? FINDINGS:? Image quality:? Excellent.? ? Lung bases:? Unremarkable.? ? Heart:? No significant findings. ? ? ABDOMEN: Liver:? Liver is enlarged measuring 22.0 cm.? Diffuse steatosis is present.? Low-attenuation foci remain present within the liver as previously identified without change. Gallbladder:? The gallbladder has been removed.? ? Biliary ducts:? Unremarkable.? ? Pancreas:? Unremarkable.? ? Spleen:? Unremarkable.? ? Adrenal Glands:? Unremarkable.? ? Kidneys and Ureters:? Unremarkable.? ? ? Stomach and Bowel:? Stomach, small bowel loops, and colon are unremarkable.? The appendix is normal. Peritoneum:? No abnormal intraperitoneal fluid.? No free air.? ? Ventral Wall: ? No hernia.? Abdominal Nodes:? No retroperitoneal or mesenteric adenopathy by size criteria.? Vessels:? Aorta and inferior vena cava are normal in size.? ? PELVIS: Pelvic Organs:? Unremarkable.? ? Bladder:? Unremarkable.? ? Pelvic Nodes: No enlarged lymph nodes.? Miscellaneous: No inguinal hernias are seen. ? ? ? Bones:? Unremarkable.? IMPRESSION:? ? 1. No visualized acute abdominal or pelvic process. ? 2. Hepatomegaly with steatosis.? Low-attenuation hepatic foci are unchanged compared to prior exams.? ? ? Dictated by: Isabelle Long M.D. on 03/06/2021 at 23:02 ? ? Approved by: Isabelle Long M.D. on 03/06/2021 at 23:07 ? US - MARKETING SYSTEMS MANAGER: Radiologist's Impression: [address] [address] Ultrasound Report Signed Patient: Amish Tamez MR#: [id number] : 1980 Acct:[id number] Age/Sex: 40 / F Date of Service: 03/06/21 Loc: ED Accession Number: [id number] ?? Procedure: US pelvic complete Ordering Provider: Baldemar Contreras D.O. PROCEDURE:? US PELVIC COMPLETE ? INDICATIONS:? PAIN, BLEEDING ? TECHNIQUE:? Real-time scanning was performed of the pelvic organs, with image documentation.? Additional endovaginal scanning was necessary due to incomplete visualization of the adnexal and endometrial structures by transabdominal scanning.? ? COMPARISON:? [facility], CT, CT ABDOMEN PELVIS W CON, 03/06/2021, 22:07. ? FINDINGS:? ?? Uterus:? Uterus is anteverted and normal in size at 9.4 x 4.7 x 5.2 cm. The myometrium is homogeneous. ? The endometrium measures 5.7 mm combined thickness.? Minimal fluid is present within the endometrial canal. ? Ovaries:? The right ovary measures 3.7 x 2.1 x 2.4 cm. The left ovary measures 2.8 x 1.5 x 1.5 cm. The ovaries have a normal sonographic appearance. Less than 12 follicles can be seen in each ovary.? No adnexal masses are seen. ? Other:? No pathologic free abdominal or pelvic fluid. ? ? IMPRESSION:? ? 1. Mild fluid within the endometrial canal, likely physiologic.? Otherwise, unremarkable exam. ? We strive to produce accurate, complete, and clear reports of imaging services. To assist us in improving patient care, this report was composed using standard report templates and voice recognition software. Therefore, it may contain abnormal punctuation, insertions and/or omissions. Occasional wrong-word or sound-alike substitutions may occur. Though we review the report and make efforts to correct it, we do recommend that the report be read carefully in proper context to recognize any text inaccuracies. ? ? Dictated by: Isabelle Long M.D. on 03/07/2021 at 0:08 ? ? Approved by: Isabelle Long M.D. on 03/07/2021 at 0:10 ? MDM Narrative Medical decision making narrative: 40-year-old female with chronic pelvic pain and known report of prolapse. She reports vaginal bleeding, heavy at times but no significance on ultrasound, vital sign abnormalities, H&H is stable. No significant findings on labs or imaging. Patient refused pelvic during exam giving increased discomfort. She states that she know she needs surgery for prolapse and would prefer not to have any more pelvic exams currently. She has been given return precautions and questions answered to her apparent satisfaction Discharge Plan Departure Patient Disposition: Home Clinical Impression: Pelvic pain, Abnormal vaginal bleeding Instructions: DI for Vaginal Bleeding, DI for Pelvic Pain Activity Restrictions/Additional Instructions: *You have been diagnosed with [pelvic pain and vaginal bleeding. Labs and imaging today are reassuring. *What to do: *Please continue to take your regular medications as directed. [ x] New medication prescriptions sent to your pharmacy: [[facility] in [place]] [ ] New medication written as a paper prescription [ ] No new medications given *Please follow up with your primary care provider in 2-3 days, call for an appointment. Let them know you were seen in the Emergency Department and that we ask that you be seen in follow up. We will electronically transmit a record of today's note if your PCP is in our system *If you do not have a primary care provider please contact the [facility] Resource line at [phone]. They will ask some questions about your medical history and help get you set up with a doctor in the community. *Return to Emergency Department if you should have any new, worsening or concerning symptoms, such as [fever greater than 101 F, shaking chills, worsening pain, persistent vomiting or other bothersome symptoms] Prescriptions: New oxycodone 5 mg tablet 5 mg PO Q4-6H PRN (Reason: pain) Qty: 10 0RF No Action gabapentin 600 mg tablet 600 mg PO TID Qty: 270 3RF Senna Plus 8.6-50 mg capsule 1 tab-cap PO DAILY 0RF alprazolam 0.5 mg tablet 0.5 mg PO BID PRN (Reason: anxiety) Qty: 60 0RF methylphenidate HCl 20 mg tablet 20 mg PO BID Qty: 60 0RF Rx Instructions: Total 30mg twice daily. methylphenidate HCl 10 mg tablet 10 mg PO BID Qty: 60 0RF Rx Instructions: Total 30mg twice daily. albuterol sulfate [Ventolin HFA] 90 mcg/actuation HFA aerosol inhaler 2 puff INHALATION QIDP PRN (Reason: shortness of breath or wheezing) Qty: 18 11RF tobramycin-dexamethasone 0.3-0.1 % drops,suspension 1 drp EYE-BOTH Q6H PRN0RF Referrals: Edi Segura MD [Primary Care Provider] - Stand Alone Forms: Work Release Note
[2021-03-06] MEDS: ONDANSETRON 4 MG/2 ML INJ IV (21:57)
[2021-03-06] MEDS: SODIUM CHLORIDE 0.9% 1,000 ML 1000 ML IV (21:57)
[2021-03-06] MEDS: KETOROLAC 30 MG/ML VIAL 15 MG IV (22:01)
[2021-03-06] MEDS: diphenhydrAMINE 50 MG/ML VIAL 25 MG IV (22:18)
[2021-03-06] MEDS: methylPREDNISolone 125 MG/2 ML VIAL IV (22:19)
[2021-03-06 22:21] LABS: Bacteria Urine Many (>30); Culture Indicated Urine Specimen Cultured; Mucus Urine 1+ (Negative); RBC Urine 30-100/HPF (0-5/HPF); Squamous Epithelial Cell Urine 1-5 /HPF (0-5/HPF); WBC Urine 1-5/HPF (0-5/HPF)
--- NOTE | 2021-03-06 22:31 | DI.US.S_ITS ---
PROCEDURE: US PELVIC COMPLETE INDICATIONS: PAIN, BLEEDING TECHNIQUE: Real-time scanning was performed of the pelvic organs, with image documentation. Additional endovaginal scanning was necessary due to incomplete visualization of the adnexal and endometrial structures by transabdominal scanning. COMPARISON: [facility], CT, CT ABDOMEN PELVIS W CON, 03/06/2021, 22:07. FINDINGS: Uterus: Uterus is anteverted and normal in size at 9.4 x 4.7 x 5.2 cm. The myometrium is homogeneous. The endometrium measures 5.7 mm combined thickness. Minimal fluid is present within the endometrial canal. Ovaries: The right ovary measures 3.7 x 2.1 x 2.4 cm. The left ovary measures 2.8 x 1.5 x 1.5 cm. The ovaries have a normal sonographic appearance. Less than 12 follicles can be seen in each ovary. No adnexal masses are seen. Other: No pathologic free abdominal or pelvic fluid. IMPRESSION: 1. Mild fluid within the endometrial canal, likely physiologic. Otherwise, unremarkable exam. We strive to produce accurate, complete, and clear reports of imaging services. To assist us in improving patient care, this report was composed using standard report templates and voice recognition software. Therefore, it may contain abnormal punctuation, insertions and/or omissions. Occasional wrong-word or sound-alike substitutions may occur. Though we review the report and make efforts to correct it, we do recommend that the report be read carefully in proper context to recognize any text inaccuracies. Dictated by: Isabelle Long M.D. on 03/07/2021 at 0:08 Approved by: Isabelle Long M.D. on 03/07/2021 at 0:10
[2021-03-06] MEDS: HYDROMORPHONE 0.5 MG INJ IV (23:10)
[2021-03-07] MEDS: OXYCODONE/APAP 5/325 PREPACK 1 BOTTLE MISC (02:07)
[2021-03-07 02:27] VITALS: BP 136/57; PULSE 77; RESP 16; O2SAT 95
== END 2021-03-07 02:28 | disposition home or self-care (01) ==
PROVIDERS: Emergency Medicine; Emergency Provider Emergency Medicine; PCP Student in an Organized Health Care Education/Training Program; Referring Provider Obstetrics & Gynecology
DX: R10.2 Pelvic and perineal pain (principal); N93.9 Abnormal uterine and vaginal bleeding, unspecified; Z20.822 Contact with and (suspected) exposure to COVID-19
CPT/HCPCS: 36415; 74177; 76830; 76856; 80053; 81003; 81015; 81025; 85025; 86850; 86900; 86901; 87086; 87635; 96361; 96374; 96375; 99284; C9803; J1170; J1200; J1885; J2405; J2930; Q9967

== ENCOUNTER → 2021-03-27 09:21 | Outpatient (CLI) | payer OTHER, SELFPAY ==
[2021-03-27 11:01] LABS: COVID19 -Nasal RAPID Negative (Negative)
== END ==
PROVIDERS: PCP Student in an Organized Health Care Education/Training Program; Visit Provider Nurse Practitioner Family
DX: Z20.822 Contact with and (suspected) exposure to COVID-19 (principal)
CPT/HCPCS: 87635

== ENCOUNTER → 2021-04-02 14:00 | Outpatient (CLI) | payer OTHER, SELFPAY ==
[2021-04-02 15:13] LABS: Add Manual Diff / Slide Review NO; Basophils Absolute Auto 100 /uL (0-100); Basophils Percent Auto 0.4 % (0-2); Eosinophils Absolute Auto 300 /uL (0-450); Eosinophils Percent Auto 2.1 % (2-4); Hematocrit 37.3 % (36-46); Hemoglobin 12.5 g/dL (12.0-16.0); Lymphocytes Absolute Auto 2300 /uL (1100-4500); Lymphocytes Percent Auto 18.2 % (25-40); Mean Corpuscular HGB Conc 33.4 % (30-36); Mean Corpuscular Hemoglobin 29.5 PG (26-34); Mean Corpuscular Volume 88.4 fL (80-100); Monocytes Absolute Auto 900 /uL (0-900); Monocytes Percent Auto 6.9 % (3-14); Neutrophils Absolute Auto 9200 /uL (1500-7000); Neutrophils Percent Auto 72.4 % (50-75); Platelet Count 263 X10^3/uL (150-400); Red Blood Cell Count 4.22 X10^6/uL (4.0-5.2); Red Cell Distribution Width 13.7 % (11.6-14.8); White Blood Cell Count 12.7 X10^3/uL (4.5-11.0)
== END ==
PROVIDERS: PCP Student in an Organized Health Care Education/Training Program; Referring Provider Student in an Organized Health Care Education/Training Program; Visit Provider Student in an Organized Health Care Education/Training Program
DX: N92.1 Excessive and frequent menstruation with irregular cycle (principal)
CPT/HCPCS: 36415; 85025

== ENCOUNTER 2021-12-01 01:55 | Emergency (ER) | payer OTHER, SELFPAY ==
[2021-12-01 02:01] VITALS: BP 117/56; PULSE 78; RESP 20; TEMP 36.3; O2SAT 98; BMI 25.4
--- NOTE | 2021-12-01 03:38 | ED.DENTAL ---
HPI - Dental/Oral General Chief complaint: Dental/Oral Stated complaint: RT. side bottom tooth pain/lost filling Time Seen by Provider: 12/01/21 03:37 Source: patient Mode of arrival: Ambulatory Limitations: no limitations History of Present Illness HPI Narrative: This is a 40-year-old female with pain at the right posterior bottom tooth and a filling that fell out in the past. Patient states that she is had some intermittent pain occasionally and has done swishes and spit with chlorhexidine which had been helpful until 2 days ago when she developed significant pain on the left side of her jaw does radiating towards her ear. Patient states last night and tonight was quite painful she is taken 3 doses of oxycodone orally this evening that she has from prescription and has not been particularly helpful. She denies fevers. She is had some nasal congestion and cough. Patient denies any vomiting. No swelling of the airway. Patient has not been able to see a dentist she did not have dental insurance until recently. She is on medications for chronic back pain, rectal and cystocele prolapse and adrenal issues that she takes methylphenidate. She has noted some foul taste from the site. She has not appreciated any redness, warmth or swelling of her face. She did recently have a dog bite and started Augmentin yesterday and has had 2 doses total. Related Data Previous Rx's Medication Instructions Recorded alprazolam 0.5 mg tablet 0.5 mg PO BID PRN anxiety #60 tabs 07/28/20 sennosides 8.6 mg-docusate sodium 1 tab-cap PO DAILY #30 caps 04/02/21 50 mg capsule (Senna Plus) gabapentin 600 mg tablet 600 mg PO TID #270 tabs 05/06/21 dexamethasone 0.1 % eye 2 drp EYE-BOTH BID #5 mL 10/31/21 drops,suspension medroxyprogesterone 10 mg tablet See Rx Instructions PO .COMPLEX 10/31/21 #100 tabs methylphenidate HCl 20 mg tablet 40 mg PO BID #120 tabs 10/31/21 mupirocin 2 % topical ointment 1 applic topical BID #15 grams 10/31/21 terbinafine HCl 250 mg tablet 250 mg PO DAILY 12 weeks #84 tabs 10/31/21 albuterol sulfate 90 mcg/actuation 2 puff inhalation QIDP PRN 11/27/21 aerosol inhaler (Ventolin HFA) shortness of breath or wheezing #18 grams amoxicillin 875 mg-potassium 1 tab PO BID #10 tabs 12/01/21 clavulanate 125 mg tablet Allergies Allergy/AdvReac Type Severity Reaction Status Date / Time tramadol Allergy Mild Hives Verified 10/31/21 07:48 hydromorphone [From DILAUDID] Allergy Unknown Verified 10/31/21 07:48 iodine [IODINE] Allergy Unknown Verified 10/31/21 07:48 latex [LATEX] Allergy Unknown Verified 10/31/21 07:48 morphine [MORPHINE] Allergy Unknown Verified 10/31/21 07:48 ketamine Allergy Verified 10/31/21 07:48 amoxicillin [From Augmentin] AdvReac Unknown yeast Verified 10/31/21 07:48 infection clavulanic acid AdvReac Unknown yeast Verified 10/31/21 07:48 [From Augmentin] infection Review of Systems Review of Systems ROS Unobtainable: All systems reviewed & are unremarkable except as noted in HPI and below Patient History Medical History Allergic conjunctivitis Anemia (~2001) Chronic back pain (Unknown) Degenerative disc disease (Unknown) Eczema (1999) Fractures (2007) GERD (gastroesophageal reflux disease) (Unknown) Hepatic hemangioma Hx of jordan (Unknown) Narcolepsy (Unknown) Rotator cuff impingement syndrome of right shoulder Shoulder pain (2014) Surgical History Hx of elbow surgery (~2013) Hx of wrist replacement (~2011) Status post laparoscopic cholecystectomy Status post tubal ligation Family History Child Age: 19 Asthma Heart disease Child Age: 17 ADHD (attention deficit hyperactivity disorder) Child Age: 14 History of developmental delay Father Stroke Diabetes mellitus Mental health problem Grandfather Age: 85 Emphysema/COPD Grandmother Age: 79 Cancer Hypertension Mental health problem Mother Age: 59 Asthma Sister Age: 38 Methamphetamine addiction Asthma Social History Smoking Status: Current every day smoker Smoking Status: Current every day smoker alcohol intake frequency: holidays/special occasions only Substance Use Type: does not use Exam Narrative Exam Narrative: GEN: well nourished, well appearing female, alert and oriented x 3, patient appears to be in moderate distress. HEENT: Atraumatic, pupils are equal round reactive to light, extraocular movements are intact, nares are clear, TMs are clear with no fluid, there is no conjunctival pallor. Throat is clear without any exudates, erythema, tonsillar enlargement or uvular deviation, poor dentition patient is missing a filling in her posterior molar on the left bottom. There is some slight swelling but no obvious fluctuance, no clear purulent drainage there is no obvious swelling of the face externally. Patient has tenderness over the tooth but is not tender on exam otherwise. No bony tenderness. No difficulty with secretions or swallowing. No swelling of the oropharynx. HEART: Regular rate and rhythm without murmur, clicks, rubs. LUNGS:Lungs clear to auscultation, no wheezes, rales, crackles, chest moves symmetrically ABD:bowel sounds normal, soft, non-tender, no guarding, rebound, rigidity, no masses noted, no hepatosplenomegaly MSCL: Non-tender, no muscle atrophy, muscles strength 5/5 upper and lower extremities, full range of motion, normal gait NEURO:CN 2-12 intact, sensation normal SKIN: No rash, erythema or other skin changes Initial Vital Signs Initial Vital Signs: Vital Signs Temperature 97.4 F L 12/01/21 02:01 Pulse Rate 78 12/01/21 02:01 Respiratory Rate 20 12/01/21 02:01 Blood Pressure 117/56 L 12/01/21 02:01 Pulse Oximetry 98 12/01/21 02:01 Oxygen Delivery Method 12/01/21 02:01 Procedures Nerve Block Nerve Block 1: Time of procedure: 04:00 Time out performed: Yes Local Anesthetic: bupivacaine 0.5% and with epi Amount of anesthesia used (mL): 1 Side: left Intraoral Nerve Block: inferior alveolar (buccal) Procedure Successful: Yes Patient Tolerated Procedure: Well Complications: none Additional Comments: Patient did have improvement pain but asked for a little bit localized right at the tooth itself which we did do and had improvement. Course Vital Signs Vital signs: Vital Signs - 8 hr 12/01/21 02:01 Temperature 97.4 F L Pulse Rate 78 Respiratory Rate 20 Blood Pressure 117/56 L Pulse Oximetry 98 Oxygen Delivery Method Room Air MDM - Dental/Oral MDM Narrative Medical decision making narrative: This is a 40-year-old female with dental pain, she does have some foul taste at the site no obvious fluctuance or area that can be easily drained. She otherwise has a reassuring exam. Dental block was performed patient did have improvement of pain. She has a prescription for Augmentin that she is started for 5 days for a dog bite and will extend this an additional 5 days. Discharge Plan Departure Patient Disposition: Home Clinical Impression: Dental infection Activity Restrictions/Additional Instructions: Please follow-up with a dentist for treatment and extraction as needed of your tooth. Take antibiotics until completely gone and additional 5 days of Augmentin has been sent to your pharmacy. You can continue with Tylenol up to a 1000 mg every 6 hours you can take ibuprofen up to 800 mg every 8 hours in addition to your oxycodone. Prescription sent to [facility] in [place]. Please return for rapidly worsening symptoms swelling of her airway, tongue, inability to swallow, muffled voice, inability to swallow secretions or drink fluids, fevers or new swelling of her face or airway. Prescriptions: New amoxicillin-pot clavulanate 875-125 mg tablet 1 tab PO BID Qty: 10 0RF No Action alprazolam 0.5 mg tablet 0.5 mg PO BID PRN (Reason: anxiety) Qty: 60 0RF Hold Instructions: change to #10 qmonth gabapentin 600 mg tablet 600 mg PO TID Qty: 270 3RF medroxyprogesterone 10 mg tablet See Rx Instructions PO .COMPLEX Qty: 100 0RF Rx Instructions: PO Q2hr until bleeding stops, [id number], [id number], [id number], [id number], [id number]; albuterol sulfate [Ventolin HFA] 90 mcg/actuation HFA aerosol inhaler 2 puff INHALATION QIDP PRN (Reason: shortness of breath or wheezing) Qty: 18 11RF Senna Plus 8.6-50 mg capsule 1 tab-cap PO DAILY Qty: 30 5RF dexamethasone 0.1 % drops,suspension 2 drp EYE-BOTH BID Qty: 5 0RF mupirocin 2 % ointment 1 applic topical BID Qty: 15 11RF terbinafine HCl 250 mg tablet 250 mg PO DAILY 84 Days Qty: 84 0RF methylphenidate HCl 20 mg tablet 40 mg PO BID Qty: 120 0RF Hold Instructions: Change to 40mg BID #120 Rx Instructions: 40mg qAM, then 20mg 4 hrs later, then 20mg after another 4 hrs Referrals: Edi Segura MD [Primary Care Provider] - Visit Report Forms: Patient Portal/API
[2021-12-01] MEDS: BUPIVACAINE 0.5% W/ EPI (PF) 30 ML VIAL (04:44)
== END 2021-12-01 04:49 | disposition home or self-care (01) ==
PROVIDERS: Emergency Provider Emergency Medicine; PCP Student in an Organized Health Care Education/Training Program
DX: K04.7 Periapical abscess without sinus (principal)
CPT/HCPCS: 64450; 99281; 99283

== ENCOUNTER → 2021-12-17 09:07 | Outpatient (CLI) | payer OTHER, SELFPAY ==
[2021-12-18 04:44] LABS: Candida species Negative (Negative); Gardnerella vaginalis Positive (Negative); Trichomoas vaginalis Negative (Negative)
== END ==
PROVIDERS: PCP Student in an Organized Health Care Education/Training Program; Visit Provider Obstetrics & Gynecology
DX: N89.8 Other specified noninflammatory disorders of vagina (principal)
CPT/HCPCS: 87480; 87510; 87660

== ENCOUNTER → 2022-03-26 09:08 | Outpatient (CLI) | payer OTHER, SELFPAY ==
[2022-03-26 10:04] LABS: COVID19 -Nasal RAPID Negative (Negative)
== END ==
PROVIDERS: PCP Student in an Organized Health Care Education/Training Program; Visit Provider Obstetrics & Gynecology
DX: Z20.822 Contact with and (suspected) exposure to COVID-19 (principal); Z01.812 Encounter for preprocedural laboratory examination
CPT/HCPCS: 87635

== ENCOUNTER 2022-03-27 07:33 | Day surgery (SDC) | payer OTHER, SELFPAY ==
[2022-03-21 12:35] VITALS: BMI 25.0
[2022-03-27] VITALS (17 sets, daily range): BP systolic 84–112; BP diastolic 38–71; PULSE 47–73; RESP 10–20; TEMP 36.2–37; O2SAT 96–100; BMI 25.0
--- NOTE | 2022-03-27 | PATH_ITS ---
[facility] Accession Number: [id number] No. of containers..01 Tissue . 01 Material submitted: . uterus - UTERUS,TUBES, AND OVARIES . 01 Diagnosis: Uterus, Bilateral Tubes And Bilateral Ovaries, Hysterectomy And Bilateral Salpingo-Oophorectomy: Cervix with mild chronic inflammation; no dysplasia or malignancy. Sectetory endometrium; no atypical hyperplasia or malignancy. Focal superficial adenomyosis. Leiomyoma. Complete cross-sections of bilateral fimbriated fallopian tubes. Bilateral ovaries with cystic follicles, hemorrhagic corpus luteum and simple serous cysts. [facility] 04/02/2022 1426 Local . 01 Electronically signed: . Yuko Cat MD, Pathologist NPI- [id number] . 01 Gross description: . The specimen is received in formalin labeled with the patient's name, , and uterus tubes and ovaries, and consists of an intact uterus (112 grams, 8.8 SI, 6.2 mL, 4.6 APCM), with attached cervix (3.5 x 3.1 cm), attached left fallopian tube (5.2 x 0.8 cm), attached left ovary (7 grams, 3.1 x 2.4 x 1.4 cm), attached right fallopian tube (4.4 x 0.7 cm), attached right ovary (15 grams, 4.4 x 2.5 x 2.2 cm). The ectocervix is guevara and smooth with a slit-like cervical os measuring 0.8 cm in diameter. The anterior paracervical margin is inked blue while the posterior paracervical margin is inked black. The serosa is brown and smooth with no areas of adhesions or hemorrhage identified. The endocervical canal has guevara herringbone mucosa and measures 2.2 cm in length. The endometrial cavity measures 2.6 cm from cornu to cornu, and 4.1 cm in length with pink to red, lush endometrium that averages 0.4 cm thick. The myometrium is pink-guevara and trabecular measuring up to 2.0 cm thick and is significant for a single well-circumscribed white whorled nodule measuring 0.5 cm in greatest dimension with no hemorrhage, necrosis, or additional lesions identified. . The left fallopian tube has congested smooth serosa with no cystic structure identified; however, a white ring is noted measuring 0.5 cm in greatest dimension. Sectioning reveals a congested stellate lumen. The left ovary has a guevara cerebriform external surface and sectioning reveals two, thin, smooth-walled, cystic structures ranging from 0.8 to 1.3 cm in greatest dimension filled with brown serous fluid. The internal surface has a red-brown smooth lining with no excrescences identified and the butler average 0.1 cm thick. The remaining cut surface is congested but otherwise physiologic and unremarkable. . The right fallopian tube has congested smooth serosa with no cystic structures identified. Sectioning reveals an unremarkable stellate lumen. The right ovary has a guevara, cerebriform external surface significant for a circular hemorrhagic area measuring 0.8 x 0.5 cm and this area is inked green. A red, soft lesion is associated with the inked external hemorrhage with a guevara central area. The lesion measures 2.0 x 1.8 x 1.2 cm and grossly approaches the inked surface. The lesion is fairly well circumscribed. Also identified are multiple red-brown, smooth-walled, cystic structures filled with brown serous fluid and ranging from 0.6 to 0.8 cm in greatest dimension with a red-brown lining and no excrescences identified with butler averaging 0.1 cm thick. The remaining cut surface is physiologic with no additional lesions identified. (Photographs taken). . Ror Engineer sections are submitted as follows: A1: Anterior cervix. A2: Posterior cervix. A3: Anterior full thickness section. A4: Posterior full thickness section. A5: Ror Engineer nodule. A6: Ror Engineer serosa. A7: Left fallopian tube to include one-half of bisected fimbriae, cross -sections . A8-A9: Left ovary cysts. A10: Normal left ovary. A11: Right fallopian tube to include one-half of bisected fimbriae and cross-sections. A12-A13: Right ovary hemorrhagic lesion. A14: Right ovary cysts. A15: Normal right ovary. ([id number]) /ALIE 04/02/2022 [facility]6 Local . 01 Pathologist provided ICD-10: N81.10, N80.00, N81.6, N81.4, D25.9 . 01 CPT . 616865 Specimen Comment: A courtesy copy of this report has been sent to [phone] Performed at: 01 [facility] [address] [place] [address], [place], [place] [id number] MD Eris Dunham MD Phone: [phone]
[2022-03-27] MEDS: LACTATED RINGERS 1,000 ML 100 ML IV ×4 (08:21→23:58)
--- NOTE | 2022-03-27 08:40 | PM.PREOP ---
Pre-operative Note COVID-19 COVID-19 status: Negative Result date/Date tested (Pos, Neg/Pending): 03/26/22 Criteria for continued procedure: Delay expected to result in less-positive ultimate med/surg outcome Interval Note History & Physical reviewed/Exam performed by Physician: Yes Changes to H&P: No H&P completed within 30 days and has changed as indicated here:: 03/19/22
[2022-03-27] MEDS: CEFAZOLIN 2 GM/100 ML PREMIX 100 ML IV (09:05)
--- NOTE | 2022-03-27 10:03 | SUR.OPER ---
Lithotomy on padded OR bed. [place] Pad Positioner under torso. Head on pillow, arms padded and tucked at sides. Legs secured in padded yellow fins stirrups.
[2022-03-27] MEDS: BUPIVACAINE 0.5% W/ EPI (PF) 30 ML VIAL 60 ML INJ (10:21)
[2022-03-27] MEDS: ACETAMINOPHEN IV 1,000 MG/100 ML VIAL 400 MG IV (11:15)
[2022-03-27] MEDS: ROPIVACAINE 0.2% PF 2 MG/ML 20ML AMP 20 ML INJ (11:22)
--- NOTE | 2022-03-27 11:59 | PM.GYNOP.1 ---
Operative Date/Time/Diagnoses Date of procedure: 03/27/22 Time of procedure: 11:59 Pre-op diagnosis: Uterine prolapse, cystocele, rectocele Post-op diagnosis: same Procedure & Clinicians Procedure: Procedures Operation Date: 03/27/22 08:45 Actual Procedure Side Surgeon p Laparoscopic Assisted Vaginal Hysterectomy w. bilateral salpingo-oophorectomy MD daniella De La Torre Anterior/Posterior Repair Shantel Marks MD Indications: Uterine prolapse, cystocele, rectocele Surgeon: Shantel Marks [employer] Teacher: Karen Rajput Anesthesia Type: General and Local Operative Notes Findings: 9 week size anteverted uterus, prolapsed Second-degree cystocele Third-degree rectocele Closure Type: primary Specimen(s): left tube & ovary, right tube & ovary and uterus Applied: catheter (Latex free, to continuous drainage) and other (Vaginal pack in place) Estimated blood loss (mL): 75 Blood products transfused: none Procedure in detail: The patient was taken to the operating room where she was placed in the dorsal supine position. After adequate general endotracheal anesthesia was achieved, she was placed in the dorsal lithotomy position, and prepped and draped in the usual sterile fashion. A bivalve speculum was placed into the vagina, and a single-tooth tenaculum was placed on the anterior lip of the cervix. The cervical os was sequentially dilated until the ZUMI uterine manipulator could pass easily into the endometrial cavity. The single-tooth tenaculum was removed from the anterior lip of the cervix, and the bivalve speculum was removed from the vagina. Attention was then turned to the abdomen where 6 mL of half percent Marcaine with epinephrine were injected in the umbilical fold. A 5 mm incision was made. The varies needle was placed into the peritoneal cavity, and its placement confirmed by aspiration and drop test. The abdominal cavity was insufflated with 4 L of CO2. The varies needle was removed, and a 5 mm trocar was placed without difficulty. Initial inspection of the pelvis revealed the findings noted above. 2 other incisions were made midway between the pubic symphysis and umbilicus 4 cm lateral to the midline. These were 5 mm incisions. 25 mm trochars were placed under direct visualization. The right tube and ovary were grasped with an atraumatic grasper. The infundibulopelvic ligament on the right side was cauterized and cut with plasma kinetic. The round ligament and broad ligament were cauterized and cut. This was continued to the level of the uterine arteries. This was repeated on the patient's left side. The insurance are removed from the abdomen. Attention was then turned to the vagina where the ZUMI uterine manipulator was removed from the uterus. The cervix was grasped with a 4 tooth tenaculum. 10 mL of quarter percent Marcaine with epinephrine were injected circumferentially around the cervix. The cervix was circumscribed. The bladder and rectum were dissected off the lower uterine segment and cervix with an open moistened Ray-Karla. The peritoneum was entered sharply with the Metzenbaum scissors anteriorly and a Sue placed. The peritoneum was entered posteriorly with the Metzenbaum scissors and the long weighted speculum was placed into the posterior cul-de-sac. The uterosacral cardinal ligament complexes were clamped, transected, and suture ligated with 0 Vicryl. These were attached to hemostat. The uterine arteries were clamped, transected, and suture ligated with 0 Vicryl. The uterus was handed off for specimen with the tubes and ovaries. The peritoneum was closed with a pursestring suture with 2-0 Vicryl. The vaginal cuff was closed with 0 Vicryl with a series of simple interrupted sutures. The tagged sutures were cut. 2 Allis clamps were placed at the apex of the cystocele. 6 mL of half percent Marcaine with epinephrine were injected and an incision was made with a #10 blade between the 2 Allis clamps. Wide Allis clamps were placed on the midline of the cystocele approximately 7. The mucosa was undermined using the Metzenbaum scissors and the mucosa incised in the midline moving the wide Allis clamps to the edges of the mucosa. The mucosa was dissected off the underlying fascia using an open moistened Ray-Karla and a #10 blade. The fascia was reapproximated with 0 Vicryl with a series of horizontal mattress sutures. The excess vaginal mucosa was excised. The mucosa was closed using simple interrupted sutures with 2-0 Vicryl including the underlying fascia to close the space. The weighted speculum was removed from the vagina. Allis clamps were placed at the mucocutaneous junction at the introitus. 6 mL of half percent Marcaine with epinephrine were injected. An incision was made with a #10 blade between the 2 Allis clamps, and a triangular piece of skin and underlying subcutaneous tissue was removed. Allis clamps were placed in the midline of the rectocele. 10 mL of half percent Marcaine with epinephrine were injected submucosally. The mucosa was undermined using the Metzenbaum scissors and the mucosa incised in the midline, moving the wide Allis clamps to the mucosal edges. The underlying fascia was dissected off of th mucosa using an open moistened Ray-Karla and a #10 blade. The fascia was reapproximated using 0 Vicryl with a series of horizontal mattress sutures. The excess vaginal mucosa was excised. The mucosa was closed using a series of simple interrupted sutures with 2-0 Vicryl including the underlying fascia to close the space. On the perineum 0 Vicryl was used to reapproximate the levator muscle. The subcutaneous layer was closed with 2-0 Vicryl. The skin was closed with 3-0 chromic in a subcuticular fashion. Hemostasis was achieved. A Betadine moistened vaginal pack was placed into the vagina. A rectal exam was done and there were no sutures palpable in the rectum. The urine was clear. Sponge, lap, and instrument counts were correct ?-2. The patient tolerated the procedure well, was taken to PACU in stable condition. Complications: none Post-operative Condition: stable Disposition: PACU Plan for aftercare: To acute care after recovery
[2022-03-27] MEDS: OXYCODONE/ACETAMINOPHEN 5/325 TABLET 1 TAB PO ×2 (12:26→12:56)
[2022-03-27] MEDS: ONDANSETRON 4 MG/2 ML INJ IV (13:42)
[2022-03-27] MEDS: DOCUSATE 100 MG CAPSULE PO (13:43)
[2022-03-27] MEDS: GABAPENTIN 600 MG TABLET PO ×2 (14:13→20:15)
[2022-03-27] MEDS: SODIUM CHLORIDE 0.9% 1,000 ML 1000 ML IV (14:45)
[2022-03-27] MEDS: OXYCODONE IR 5 MG TABLET 10 MG PO ×2 (16:08→19:38)
[2022-03-27] MEDS: KETOROLAC 30 MG/ML VIAL IV ×2 (16:51→23:24)
[2022-03-27] MEDS: HYDROMORPHONE 2 MG INJ IV (21:40)
[2022-03-27] MEDS: DOCUSATE 100 MG CAPSULE 200 MG PO (22:01)
[2022-03-27] MEDS: hydrOXYzine pamoate 25 MG CAPSULE PO (22:02)
[2022-03-28 00:50] VITALS: BP 93/45; PULSE 56; RESP 17; TEMP 36.4; O2SAT 96
[2022-03-28] MEDS: OXYCODONE IR 5 MG TABLET 10 MG PO ×2 (00:55→08:03)
[2022-03-28] MEDS: HYDROMORPHONE 2 MG INJ IV (04:20)
[2022-03-28 05:16] VITALS: BP 89/47; PULSE 44; RESP 18; TEMP 36.4; O2SAT 97
[2022-03-28] MEDS: KETOROLAC 30 MG/ML VIAL IV (05:17)
[2022-03-28 05:22] VITALS: PULSE 44; RESP 14; O2SAT 98
[2022-03-28] MEDS: ALBUTEROL 2.5 MG/3 ML NEB (ADULT) INH (05:22)
[2022-03-28 06:01] LABS: Add Manual Diff / Slide Review NO; Basophils Absolute Auto 0 /uL (0-100); Basophils Percent Auto 0.3 % (0-2); Eosinophils Absolute Auto 100 /uL (0-450); Eosinophils Percent Auto 1.1 % (2-4); Hematocrit 33.3 % (36-46); Lymphocytes Absolute Auto 2400 /uL (1100-4500); Lymphocytes Percent Auto 17.7 % (25-40); Mean Corpuscular HGB Conc 33.1 % (30-36); Mean Corpuscular Hemoglobin 29.8 PG (26-34); Monocytes Absolute Auto 900 /uL (0-900); Monocytes Percent Auto 6.8 % (3-14); Neutrophils Absolute Auto 10100 /uL (1500-7000); Neutrophils Percent Auto 74.1 % (50-75); Platelet Count 184 X10^3/uL (150-400); Red Cell Distribution Width 13.6 % (11.6-14.8); White Blood Cell Count 13.6 X10^3/uL (4.5-11.0)
[2022-03-28] MEDS: GABAPENTIN 600 MG TABLET PO ×2 (08:01→14:39)
[2022-03-28] MEDS: DOCUSATE 100 MG CAPSULE 200 MG PO (08:01)
[2022-03-28] MEDS: hydrOXYzine pamoate 25 MG CAPSULE PO ×2 (08:01→12:35)
[2022-03-28] MEDS: METHYLPHENIDATE 5 MG TABLET 40 MG PO (08:01)
[2022-03-28] MEDS: ACETAMINOPHEN 325 MG TABLET 650 MG PO (08:04)
[2022-03-28 08:11] VITALS: BP 105/34; PULSE 51; RESP 16; TEMP 36.5; O2SAT 98
[2022-03-28 09:13] VITALS: BP 117/56
[2022-03-28] MEDS: LACTATED RINGERS 500 ML 1000 ML IV (10:47)
[2022-03-28] MEDS: ONDANSETRON 4 MG/2 ML INJ IV (10:47)
[2022-03-28] MEDS: terbinafine HCL 250 MG TABLET PO (10:47)
--- NOTE | 2022-03-28 11:15 | CM.DANOTE ---
Addendum entered by Reyna Camarena R.N. 03/28/22 11:24: Reyna Camarena RN Case Manager Original Note: DCP: Assessment: Pt is a 41 yo female who came to hospital via POV for preplanned Laparoscopic Assisted Vaginal Hysterectomy with bilateral Salpingo-oophorectomy anterior/posterior repair indicated by Uterine Prolapse, cystocele, rectocele. PCP: Edi Segura [facility] This DCP met with pt in her room. Introduced self and role. Pt's best friend present. Pt confirms that she resides with her who will be a support for her in [place]. She reports that He will be taking 2 wks off to support her at home. She states that she drives at [place], works for [employer] and has 6wks off from work. She reports that she has stairs to the 1st level of her home. Plan: Discharge home today with . Pt requires no other services. Discharge Planning/Care Management CM Discharge Assessment Start: 03/28/22 11:13 Freq: Status: Active Protocol: Document 03/28/22 11:13 JS (Rec: 03/28/22 11:15 [id number]) Discharge Planning Assessment Assigned Dough Molder Hand Reyna Camarena RN Case Manager Advance Directives? No History Provided By Patient Has Patient been admitted in last 30 No days? Prior Living Arrangements House Household Members spouse,children Type of transporation used prior to Drives own vehicle admit Independent with ADL's Yes Is patient alert and oriented? Yes Caregiver for Another No Barriers to Discharge No Discharge Plan Home Transportation Arrangement will provide transportation Referrals Initiated None needed Whiteboard Updated in Patient Room with Yes name and ext. # of Dough Molder Hand Review Status In Process Next Review Type Continued Stay Review Pre-Anesthesia Assessment Start: 03/21/22 12:35 Freq: Status: Active Protocol: Document 03/21/22 12:35 CAB (Rec: 03/21/22 13:47 CAB [id number]) Pre-Anesthesia Assessment PAC Comment I have a completely different nervous system from everyone. They told me this by a specialist in [place] during a nerve test Advised pt to hold Ritalin dos per Anesthesia Wants a nicotine patch Preferred Name Claudette Comment COVID screen @ 03/26/22 Primary Care Provider Edi Segura Seen Specialist in Last 12 Months Yes Specialist Seen Emergency,Fiber Artist Primary Language Algerian Vice President Network Required No Height 173.99 cm Weight 75.75 kg Body Mass Index (BMI) 25.0 Hearing Ability Normal Visual Assist Glasses Dentition Type Teeth, Natural Present,Teeth, Broken,Teeth, Missing Barriers to Learning None Hx Anesthesia Reactions Yes: Ketamine - Could hear everything, but could not react-I need a lot Additional comment General anesthesia does not work on me. Hx Family Anesthesia Reaction No Hx Malignant Hyperthermia No Hx Blood Transfusions No Anesthesia Review Requested No alcohol intake current alcohol intake frequency holidays/special occasions only Smoking Status Current every day smoker Tobacco type cigarettes Substance Use Type does not use Patient is completely paralyzed or No completely immobile Mental Status Oriented to own ability Is patient on oxygen? No Does patient have HINDS/SOB No Hx Sleep Apnea No Currently Taking a Beta Cristina No Hx Chest Pain No Hx SOB No Hx Syncope or Dizziness No Anti-Coagulant Therapy No Has a Grocery Store Bagger No Cardiac Testing No Hx Pacemaker/ICD No Pacemaker Rep Required? No Urinary Catheter Present No Hx Urinary Self Catheterization No Diabetes No Patient No Lactating No Hx Drug Resistant Organism No Received a COVID vaccine? No Marital Status Lives With spouse,children Support System Significant Other Does the Patient Have Assistance After Yes Surgery Patient Discharge Plan Description Return Home Comment Pt advised overnight length of stay per surgeon Health Care Proxy/Next of Kin Judy () Swapna (Mom) Health Care Proxy Phone Number Doil: [phone] Swapna: [phone] Advance Directives? No PAC Instructions Do not shave/clip surgical site,Medications to take/avoid ,No ETOH/petroleum product on skin DOS,NPO,Pre-surgical wash ,Sensory aids,Sturdy shoes/ comfortable clothes,Do not bring valuables and remove jewelry
[2022-03-28] MEDS: IBUPROFEN 600 MG TABLET PO (12:34)
[2022-03-28] MEDS: OXYCODONE IR 5 MG TABLET PO (12:35)
[2022-03-28] MEDS: METHYLPHENIDATE 5 MG TABLET 20 MG PO ×2 (12:40→14:39)
--- NOTE | 2022-03-28 18:37 | PC.NURSE ---
Discharge: Pt feels ready to d/c to home. Seen by MD and given d/c instructions. She has voided multi times and greatest PVR was 17mls. Given d/c package and reviewed. Rx has been esent. Questions answered. Pt d/c to home via auto w/spouse.
== END 2022-03-28 15:10 | disposition home or self-care (01) ==
LOC: OR 07:34 → AC 11:59
PROVIDERS: PCP Student in an Organized Health Care Education/Training Program; Referring Provider Obstetrics & Gynecology; Visit Provider Obstetrics & Gynecology
PROC: 0UT9FZZ Resection of Uterus, Via Natural or Artificial Opening With Percutaneous Endoscopic Assistance (ICD-10-PCS; CPT 58552; principal; 2022-03-27 08:45)
PROC: (CPT 58552; 2022-03-27 08:45)
DX: N81.89 Other female genital prolapse (principal); N72 Inflammatory disease of cervix uteri; N80.03 Adenomyosis of the uterus; N83.202 Unspecified ovarian cyst, left side; N83.201 Unspecified ovarian cyst, right side
CPT/HCPCS: 58552; 57260; 36415; 85025; 94640; J0131; J0330; J0690; J1100; J1170; J1885; J2405; J2704; J2795; J3010; J7613

== ENCOUNTER 2022-06-15 02:56 | Emergency (ER) | payer OTHER, SELFPAY ==
[2022-03-27 13:18] VITALS: BMI 25.0
[2022-06-15] VITALS (9 sets, daily range): BP systolic 98–141; BP diastolic 55–69; PULSE 62–103; RESP 17–32; O2SAT 98–100; BMI 25.4
--- NOTE | 2022-06-15 03:08 | DI.RAD.S_ITS ---
PROCEDURE: XR CHEST 1V INDICATIONS: Chest pain TECHNIQUE: One view of the chest was acquired. COMPARISON: None. FINDINGS: Surgical changes and devices: None. Lungs and pleura: Lungs are clear. No pleural effusions or pneumothorax. Mediastinum: Mediastinal contours appear normal. Heart size is normal. Bones and chest wall: No suspicious bony lesions. Overlying soft tissues appear unremarkable. IMPRESSION: No acute cardiopulmonary disease. Dictated by: Adilene Garcia M.D. on 06/15/2022 at 8:14 Approved by: Adilene Garcia M.D. on 06/15/2022 at 8:14
[2022-06-15] MEDS: ONDANSETRON 4 MG/2 ML INJ IV (03:25)
--- NOTE | 2022-06-15 03:26 | ED.GENADULT ---
HPI - General Adult General Chief complaint: Abdominal Pain Stated complaint: chest pain/vomiting/abd. pain Time Seen by Provider: 06/15/22 03:08 Source: patient and other (Boyfriend) Mode of arrival: Ambulatory Limitations: no limitations History of Present Illness HPI narrative: Patient is a 41-year-old female who is here for evaluation of upper abdominal pain that she states is causing her to have quite a bit of nausea and then burning sensation in the back of her chest and in her throat. She is also having some lower abdominal pain that is radiating to her right lower quadrant. She is also had quite a bit of vomiting. Also describes diarrhea. She had a hysterectomy in March. She states she was told to come into the emergency department for further evaluation if she were an average get lower abdominal pain by the operative surgeon. Related Data Home Medications Medication Instructions Recorded Confirmed Aleve 440 mg PO DAILY PRN Pain 03/21/22 06/04/22 terbinafine HCl 250 mg tablet 250 mg PO DAILY 03/21/22 06/04/22 Previous Rx's Medication Instructions Recorded gabapentin 600 mg tablet 600 mg PO TID #270 tabs 05/06/21 mupirocin 2 % topical ointment 1 applic topical BID #15 grams 10/31/21 albuterol sulfate 90 mcg/actuation 2 puff inhalation QIDP PRN 11/27/21 aerosol inhaler (Ventolin HFA) shortness of breath or wheezing #18 grams sennosides 8.6 mg-docusate sodium 1 tab-cap PO DAILY PRN 03/28/22 50 mg capsule (Senna Plus) Constipation #30 caps oxycodone 5 mg tablet 5 mg PO Q6H PRN pain #20 tabs 04/10/22 estradiol 0.5 mg tablet See Rx Instructions .Route 05/06/22 .COMPLEX #180 tabs estradiol 1 mg tablet 1 mg PO BID #180 tabs 05/06/22 methylphenidate HCl 20 mg tablet 40 mg PO BID #120 tabs 05/21/22 mupirocin 2 % topical ointment 1 applic topical TID #15 grams 06/04/22 sucralfate 100 mg/mL oral 10 ml PO QACHS #420 mL 06/15/22 suspension (Carafate) Allergies Allergy/AdvReac Type Severity Reaction Status Date / Time adhesive Allergy Severe Swelling, Verified 06/04/22 08:53 redness, rash iodine [IODINE] Allergy Severe I was on Verified 06/04/22 08:53 fire, excruiating pain, rash on skin ketamine Allergy Severe I felt Verified 06/04/22 08:53 the pain, but I could not react. I never want this! latex [LATEX] Allergy Severe Swelling, Verified 06/04/22 08:53 redness, rash morphine [MORPHINE] Allergy Severe Hives Verified 06/04/22 08:53 tramadol Allergy Mild Hives Verified 06/04/22 08:53 amoxicillin [From Augmentin] AdvReac Unknown yeast Verified 06/04/22 08:53 infection clavulanic acid AdvReac Unknown yeast Verified 06/04/22 08:53 [From Augmentin] infection hydromorphone [From DILAUDID] AdvReac Unknown It did Verified 06/04/22 08:53 funny things to my heart Review of Systems Cardiovascular Cardiovascular: Reports system reviewed and no additional complaints, except as documented Respiratory Respiratory: Reports system reviewed and no additional complaints, except as documented Gastrointestinal Gastrointestinal: Reports system reviewed and no additional complaints, except as documented Genitourinary Genitourinary: Reports system reviewed and no additional complaints, except as documented Integumentary/Breasts Skin/Breast: Reports system reviewed and no additional complaints, except as documented Neurologic Neurologic: Reports system reviewed and no additional complaints, except as documented Hematologic/Lymphatic On Anticoagulants: No Patient History Medical History Allergic conjunctivitis Anemia (~2001) Anesthesia complication Celiac disease Chronic back pain (Unknown) Degenerative disc disease (Unknown) Eczema (1999) Fractures (2007) GERD (gastroesophageal reflux disease) (Unknown) Hepatic hemangioma Hx of jordan (Unknown) Narcolepsy (Unknown) Rotator cuff impingement syndrome of right shoulder Shoulder pain (2014) Surgical History Hx of elbow surgery (~2013) Hx of wrist replacement (~2011) Status post laparoscopic cholecystectomy Status post tubal ligation Family History Child Age: 20 Asthma Heart disease Child Age: 18 ADHD (attention deficit hyperactivity disorder) Child Age: 15 History of developmental delay Father Stroke Diabetes mellitus Mental health problem Grandfather Age: 86 Emphysema/COPD Grandmother Age: 80 Cancer Hypertension Mental health problem Mother Age: 60 Asthma Sister Age: 39 Methamphetamine addiction Asthma Social History household members: spouse and children Smoking Status: Current every day smoker alcohol intake: current Smoking Status: Current every day smoker alcohol intake frequency: holidays/special occasions only Substance Use Type: does not use Exam Initial Vital Signs Initial Vital Signs: Vital Signs Pulse Rate 91 H 06/15/22 03:06 Respiratory Rate 18 06/15/22 03:06 Blood Pressure 141/63 H 06/15/22 03:06 Pulse Oximetry 100 06/15/22 03:06 Oxygen Delivery Method Room Air 06/15/22 03:06 HENMT Head: normal to inspection and normocephalic Resp Effort & Inspection: normal respiratory effort Auscultation: clear to auscultation bilaterally Cardio Rate: regular rate Rhythm: regular rhythm GI Inspection: normal to inspection and non-distended Palpation: soft and tender External Female Exam: normal external appearance Speculum Exam - Vagina: not erythematous, No vaginal bleeding, no masses and tenderness Bimanual Exam- Vagina & Uterus: normal bimanual exam OB/External & Speculum: No vaginal bleeding Back/Spine/Pelvis Back: No CVA tenderness Skin General: no rashes or lesions noted Neuro General: patient alert, patient awake, patient oriented x3 and moves all extremities Psych Mood: anxious mood Course Orders Ordered: ED Orders 06/15/22 03:06 EKG-12 Lead Stat 06/15/22 03:08 XR chest 1V Stat 06/15/22 03:28 Complete Blood Count AUTO DIFF Stat Comprehensive Metabolic Panel Stat Lipase Stat Test Serum,Qual Stat 06/15/22 03:42 CT abdomen pelvis wo con Stat Discontinued Medications Al Hydrox/Mg Hydrox/Simethicone 20 ml/ Lidocaine HCl 15 ml 0 ml PO NOW ONE Stop: 06/15/22 03:29 Last Admin: 06/15/22 03:43 Dose: 35 ml Documented By: GC Metoclopramide HCl (Metoclopramide 10 Mg/2 Ml Inj) 10 mg IV NOW ONE Stop: 06/15/22 04:16 Last Admin: 06/15/22 04:25 Dose: 10 mg Documented By: GC Ondansetron HCl (Ondansetron 4 Mg/2 Ml Inj) 4 mg IV NOW ONE Stop: 06/15/22 03:15 Last Admin: 06/15/22 03:25 Dose: 4 mg Documented By: ANAYA Sucralfate (Sucralfate 1 Gm/10 Ml Oral Susp) 1 gm PO NOW ONE Stop: 06/15/22 06:12 Vital Signs Vital signs: Vital Signs - 8 hr 06/15/22 03:06 06/15/22 03:25 06/15/22 03:30 Pulse Rate 91 H 103 H 85 Respiratory Rate 18 32 H 22 Blood Pressure 141/63 H Pulse Oximetry 100 99 99 Oxygen Delivery Method Room Air 06/15/22 03:51 06/15/22 03:51 06/15/22 04:00 Pulse Rate 87 Respiratory Rate 22 Blood Pressure 135/65 132/58 L Pulse Oximetry 99 Oxygen Delivery Method 06/15/22 04:00 06/15/22 04:30 06/15/22 04:30 Pulse Rate 87 68 Respiratory Rate 17 19 Blood Pressure 110/55 L Pulse Oximetry 99 98 Oxygen Delivery Method Medical Decision Making Medical Records Medical records reviewed: Yes I reviewed the patient's medical records. Lab Data Lab results reviewed: Yes I reviewed the patient's lab results. 06/15/22 03:28 06/15/22 03:28 Labs: Lab Results 06/15/22 06/15/22 06/15/22 Range/Units 03:28 03:28 03:28 WBC 13.8 H (4.5-11.0) X10^3/uL RBC 4.73 (4.0-5.2) X10^6/uL Hgb 14.0 (12.0-16.0) g/dL Hct 41.3 (36-46) % MCV 87.4 (80-100) fL MCH 29.6 (26-34) PG MCHC 33.8 (30-36) % RDW 13.7 (11.6-14.8) % Plt Count 271 (150-400) X10^3/uL Neut % (Auto) 78.3 H (50-75) % Lymph % (Auto) 15.0 L (25-40) % [place] % (Auto) 4.1 (3-14) % Eos % (Auto) 2.0 (2-4) % Baso % (Auto) 0.6 (0-2) % Neut # (Auto) 91556 H (5597-2361) /uL Lymph # (Auto) 2100 (7794-3724) /uL [place] # (Auto) 600 (0-900) /uL Eos # (Auto) 300 (0-450) /uL Baso # (Auto) 100 (0-100) /uL Sodium 139 (137-145) mmol/L Potassium 3.6 (3.4-5.1) mmol/L Chloride 106 (98-107) mmol/L Carbon Dioxide 28 (22-32) mmol/L BUN 12 (7-17) mg/dL Creatinine 0.64 (0.52-1.04) mg/dL Estimated GFR > 60 (>60) mL/min BUN/Creatinine Ratio 18.8 (6-22) Glucose 111 H (70-100) mg/dL Calcium 8.8 (8.4-10.2) mg/dL Total Bilirubin 0.3 (0.2-1.3) mg/dL AST 16 (14-36) IU/L ALT 14 (<35) IU/L Alkaline Phosphatase 62 (38-126) U/L Total Protein 6.8 (6.3-8.2) g/dL Albumin 3.9 (3.5-5.0) g/dL Globulin 2.9 (1.7-4.1) g/dL Albumin/Globulin Ratio 1.3 (1.0-2.8) Lipase 41 (23-300) U/L Serum , Qual Negative (Negative) Imaging Data Chest x-ray: Radiologist's Impression: No active disease in the chest CT scan - abdomen/pelvis: Radiologist's Impression: Soft tissue density structure in the uterine bed which is felt likely to represent a combination of the vaginal cuff and retained cervix. No acute abnormality identified within the abdomen and pelvis ECG Data Attestation: I personally reviewed and interpreted this ECG as follows: Interpretation: Sinus rhythm Ventricular rate 90 Normal axis Normal QRS Normal QTC No ST T wave changes MDM Narrative Medical decision making narrative: The CT scan of her abdomen is unremarkable and shows no signs of any acute pathology. She does have leukocytosis but I suspect that this is from her vomiting. Low suspicion for pancreatitis. LFTs are unremarkable. She stated that when she was washing her vaginal area earlier today she touched an area that was very sensitive. She asked that we evaluate this and with nursing at bedside we did do a vaginal exam that was unremarkable without any specific abnormalities. Do have some suspicion that her upper abdominal pain could be a stomach ulcer given the location and also the burning she was having in her esophagus. Will send home with a prescription for Carafate and instructions for its use. We will have her contact her primary doctor for a follow-up. She expressed understanding and agreement. Discharge Plan Departure Patient Disposition: Home Clinical Impression: Abdominal pain Instructions: DI for Abdominal Pain-Adult Activity Restrictions/Additional Instructions: According to the website the pharmacy at [facility] does open today at 1000 hours. There is no indication that it will be closed today. A prescription was sent to this pharmacy for the Carafate. I recommend that you take it as directed. Also recommend you contact your primary doctor especially if her symptoms are not improving as you may need a referral to see Gastroenterology. Return to the emergency department for new symptoms. Prescriptions: New sucralfate [Carafate] 100 mg/mL suspension 10 ml PO QACHS Qty: 420 2RF No Action mupirocin 2 % ointment 1 applic topical TID Qty: 15 0RF gabapentin 600 mg tablet 600 mg PO TID Qty: 270 3RF albuterol sulfate [Ventolin HFA] 90 mcg/actuation HFA aerosol inhaler 2 puff INHALATION QIDP PRN (Reason: shortness of breath or wheezing) Qty: 18 11RF Senna Plus 8.6-50 mg capsule 1 tab-cap PO DAILY PRN (Reason: Constipation) Qty: 30 3RF oxycodone 5 mg tablet 5 mg PO Q6H PRN (Reason: pain) Qty: 20 0RF estradiol 0.5 mg tablet See Rx Instructions .ROUTE .COMPLEX Qty: 180 3RF Dose Instruction: TAKE 1 TABLET BY MOUTH EVERY MORNING AND 1 EVERY EVENING Rx Instructions: TAKE 1 TABLET BY MOUTH EVERY MORNING AND 1 EVERY EVENING estradiol 1 mg tablet 1 mg PO BID Qty: 180 3RF Rx Instructions: 1 mg tablet PO BID. Total of 2mg daily. methylphenidate HCl 20 mg tablet 40 mg PO BID Qty: 120 0RF Hold Instructions: Change to 40mg BID #120 Rx Instructions: 40mg qAM, then 20mg 4 hrs later, then 20mg after another 4 hrs mupirocin 2 % ointment 1 applic topical BID Qty: 15 11RF Aleve 440 mg PO DAILY PRN (Reason: Pain) terbinafine HCl 250 mg Tablet 250 mg PO DAILY Referrals: Edi Segura MD [Primary Care Provider] - Stand Alone Forms: Patient Portal/API
--- NOTE | 2022-06-15 03:42 | DI.CT.S_ITS ---
PROCEDURE: CT ABDOMEN PELVIS WO CON INDICATIONS: Right lower quadrant/mid abdominal pain. Recent hysterectomy. TECHNIQUE: Axial sections were acquired from the lung bases to the pubic symphysis. Coronal and sagittal reformats were performed. For radiation dose reduction, the following was used: automated exposure control, adjustment of mA and/or kV according to patient size. COMPARISON: CT, KIDNEY/ URETER/BLADDER, 12/04/2016, 12:27. US, US PELVIC COMPLETE, 03/06/2021, 23:27. [facility], CT, CT ABDOMEN PELVIS W CON, 03/06/2021, 22:07. FINDINGS: Image quality: Excellent. Lung bases: Unremarkable. Heart: No significant findings. URINARY: Right Kidney: No stones or hydronephrosis. Right Ureter: No hydroureter. Left Kidney: No stones or hydronephrosis. Left Ureter: No hydroureter. Bladder: Normal wall thickness. No stones. ABDOMEN: Liver: Unremarkable. Gallbladder: Surgically removed. Biliary ducts: Unremarkable. Pancreas: Unremarkable. Spleen: Unremarkable. Adrenal Glands: Unremarkable. Stomach and Bowel: Stomach, small bowel loops, and colon are unremarkable. Peritoneum: No abnormal intraperitoneal fluid. No free air. Ventral Wall: No hernia. Abdominal Nodes: No enlarged retroperitoneal or mesenteric lymph nodes. Vessels: Aorta and inferior vena cava are normal in size. PELVIS: Pelvic Organs: Soft tissue in pelvis is likely remnant uterus/vaginal cuff after hysterectomy. There is a trace amount of free fluid in the cul-de-sac. No fluid collections to suggest abscess. Pelvic Nodes: Unremarkable. Miscellaneous: No inguinal hernias are seen. Bones: Unremarkable. IMPRESSION: 1. No renal stones or hydronephrosis. 2. Normal appendix. 3. Soft tissue in the pelvis is most likely the remnant uterus/vaginal cuff after hysterectomy. There is a trace amount of free fluid in the cul-de-sac. No fluid collections to suggest abscess. No significant discrepancy with the overnight stocker radiology preliminary report. Dictated by: Adilene Garcia M.D. on 06/15/2022 at 8:16 Approved by: Adilene Garcia M.D. on 06/15/2022 at 8:22
[2022-06-15] MEDS: MAG HYDROX/ALUMINUM/SIMETH SUS 20 ML, LIDOCAINE VISCOUS 2% 15 ML PO (03:43)
[2022-06-15 03:44] LABS: Add Manual Diff / Slide Review NO; Basophils Absolute Auto 100 /uL (0-100); Basophils Percent Auto 0.6 % (0-2); Eosinophils Absolute Auto 300 /uL (0-450); Hematocrit 41.3 % (36-46); Lymphocytes Absolute Auto 2100 /uL (1100-4500); Mean Corpuscular HGB Conc 33.8 % (30-36); Mean Corpuscular Hemoglobin 29.6 PG (26-34); Mean Corpuscular Volume 87.4 fL (80-100); Monocytes Absolute Auto 600 /uL (0-900); Monocytes Percent Auto 4.1 % (3-14); Neutrophils Absolute Auto 10800 /uL (1500-7000); Neutrophils Percent Auto 78.3 % (50-75); Platelet Count 271 X10^3/uL (150-400); Red Blood Cell Count 4.73 X10^6/uL (4.0-5.2); Red Cell Distribution Width 13.7 % (11.6-14.8); White Blood Cell Count 13.8 X10^3/uL (4.5-11.0)
[2022-06-15 03:47] LABS: Alanine Aminotransferase 14 IU/L (<35); Albumin 3.9 g/dL (3.5-5.0); Albumin Globulin Ratio 1.3 (1.0-2.8); Alkaline Phosphatase 62 U/L (38-126); Aspartate Aminotransferase 16 IU/L (14-36); BUN Creatinine Ratio 18.8 (6-22); Bilirubin Total 0.3 mg/dL (0.2-1.3); Blood Urea Nitrogen 12 mg/dL (7-17); Calcium 8.8 mg/dL (8.4-10.2); Carbon Dioxide 28 mmol/L (22-32); Chloride 106 mmol/L (98-107); Estimated Glomerular Filt Rate > 60 mL/min (>60); Globulin 2.9 g/dL (1.7-4.1); Glucose 111 mg/dL (70-100); HEMOLYSIS < 15 (0-50); Lipase 41 U/L (23-300); Potassium 3.6 mmol/L (3.4-5.1); Sodium 139 mmol/L (137-145); Total Protein 6.8 g/dL (6.3-8.2)
[2022-06-15 03:59] LABS: Pregnancy Test Serum,Qual Negative (Negative)
[2022-06-15] MEDS: METOCLOPRAMIDE 10 MG/2 ML INJ IV (04:25)
[2022-06-15] MEDS: SUCRALFATE 1 GM/10 ML ORAL SUSP PO (06:25)
== END 2022-06-15 06:20 | disposition home or self-care (01) ==
PROVIDERS: Emergency Provider Emergency Medicine; PCP Student in an Organized Health Care Education/Training Program
DX: R10.10 Upper abdominal pain, unspecified (principal); R19.7 Diarrhea, unspecified
CPT/HCPCS: 36415; 71045; 74176; 80053; 83690; 84703; 85025; 93005; 96374; 96375; 99284; J2405; J2765

== ENCOUNTER → 2022-11-24 10:10 | Outpatient (CLI) | payer OTHER, SELFPAY ==
[2022-09-12 09:12] VITALS: BMI 25.0
--- NOTE | 2022-11-24 10:11 | DI.US.S_ITS ---
PROCEDURE: US ABDOMEN LIMITED INDICATIONS: Reassess liver for steatosis and stable foci noted previousl TECHNIQUE: Real-time focused scanning was performed of the abdomen, with image documentation. COMPARISON: [facility], CT, CT ABDOMEN PELVIS W CON, 03/06/2021, 22:07. [facility], CT, CT ABDOMEN PELVIS WO CON, 06/15/2022, 3:45. [facility], US, US ABDOMEN COMPLETE, 07/09/2018, 10:31. FINDINGS: Liver length of 19.2 cm. The liver is echogenic. 2.0 cm echogenic focus in the right lobe of the liver, previously 2.2 cm not substantially changed. An echogenic structure in the posterior right lobe of the liver seen previously not is not identified on the current study. Prior cholecystectomy. No biliary ductal dilation. Extrahepatic bile duct measures 7-8 mm. Visualized pancreas unremarkable sonographically. IMPRESSION: 1. The liver is echogenic, a nonspecific finding commonly seen in the setting of steatosis. 2. Similar approximately 2 cm echogenic structure in the right lobe of the liver. In patients without a history of malignancy or liver disease, these commonly represent hemangiomas. Imaging follow-up could be obtained as clinically indicated, MRI of the liver could also be obtained for characterization if clinically indicated. Dictated by: Maximo Greenwood M.D. on 11/25/2022 at 11:41 Approved by: Maximo Greenwood M.D. on 11/25/2022 at 11:45
== END ==
PROVIDERS: PCP Pediatrics; Referring Provider Pediatrics; Visit Provider Pediatrics
DX: K76.0 Fatty (change of) liver, not elsewhere classified (principal); D18.03 Hemangioma of intra-abdominal structures; M51.36 Other intervertebral disc degeneration, lumbar region; K21.00 Gastro-esophageal reflux disease with esophagitis, without bleeding; F41.1 Generalized anxiety disorder
CPT/HCPCS: 76705

== ENCOUNTER → 2022-12-08 09:36 | Outpatient (CLI) | payer SELFPAY ==
[2022-09-12 09:12] VITALS: BMI 25.0
--- NOTE | 2022-12-08 09:38 | DI.US.S_ITS ---
LIMITED ULTRASOUND OF LEFT BREAST: 12/08/2022 CLINICAL: Palpable left breast lump by patient. Comparison is made to exam dated: 12/08/2022 mammogram - [facility]. Real-time ultrasound of the left breast 1 o'clock region was performed. Gagnon scale images of the real-time examination were reviewed. No significant abnormalities were seen sonographically in the left breast. IMPRESSION: NEGATIVE There is no sonographic evidence of malignancy. There is no abnormality seen in the left breast to correspond with the palpable abnormality, however, clinical followup is recommended. A 1 year screening mammogram is recommended. This exam was interpreted at Station ID: [id number]. Electronically Signed By: Maximo meneses/[email or web address]:12/08/2022 11:42:32 letter sent: Clinical Evaluation Ultrasound BI-RADS: 1 Negative
--- NOTE | 2022-12-08 09:38 | DI.MG.S_ITS ---
BILATERAL DIGITAL DIAGNOSTIC MAMMOGRAM 3D/2D: 12/08/2022 CLINICAL: Baseline exam. Left breast mass. No prior exams were available for comparison. There are scattered areas of fibroglandular density in both breasts (category b / 25%-50% glandular tissue). No significant masses, calcifications, or other findings are seen in either breast. IMPRESSION: INCOMPLETE: NEEDS ADDITIONAL IMAGING EVALUATION There is no abnormality seen in the left breast to correspond with the palpable abnormality, however, ultrasound is recommended. Based on the Tyrer Cuzick model (a risk assessment model) the patient's lifetime risk is 10.2% and her 10 year risk is 1.5%. According to the ACR, ACS, and NCCN guidelines, an annual breast MRI exam along with mammogram is recommended if the patient's lifetime risk is 20% or greater. This exam was interpreted at Station ID: [id number]. NOTE: For mammograms, a report in lay terms will be sent to the patient. Approximately 15% of breast malignancies will not be visualized mammographically. In the management of a palpable breast mass, a negative mammogram must not discourage biopsy of a clinically suspicious lesion. Electronically Signed By: Maximo meneses/blossom:12/08/2022 11:37:40 ACR BI-RADS Category 0: Incomplete [id number]
== END ==
PROVIDERS: PCP Pediatrics; Referring Provider Pediatrics; Visit Provider Pediatrics
DX: N63.20 Unspecified lump in the left breast, unspecified quadrant (principal); R92.2 Inconclusive mammogram
CPT/HCPCS: 76642; 77066; G0279

== ENCOUNTER → 2023-04-09 15:47 | Outpatient (CLI) | payer SELFPAY ==
[2022-09-12 09:12] VITALS: BMI 25.0
[2023-04-09 16:47] LABS: Add Manual Diff / Slide Review NO; Basophils Absolute Auto 100 /uL (0-100); Basophils Percent Auto 0.7 % (0-2); Eosinophils Absolute Auto 400 /uL (0-450); Eosinophils Percent Auto 3.3 % (2-4); Hematocrit 42.6 % (36-46); Hemoglobin 14.3 g/dL (12.0-16.0); Lymphocytes Absolute Auto 2300 /uL (1100-4500); Lymphocytes Percent Auto 21.8 % (25-40); Mean Corpuscular HGB Conc 33.7 % (30-36); Mean Corpuscular Hemoglobin 29.5 PG (26-34); Mean Corpuscular Volume 87.5 fL (80-100); Monocytes Absolute Auto 600 /uL (0-900); Monocytes Percent Auto 5.8 % (3-14); Neutrophils Absolute Auto 7300 /uL (1500-7000); Neutrophils Percent Auto 68.4 % (50-75); Platelet Count 305 X10^3/uL (150-400); Red Blood Cell Count 4.87 X10^6/uL (4.0-5.2); Red Cell Distribution Width 13.4 % (11.6-14.8); White Blood Cell Count 10.6 X10^3/uL (4.5-11.0)
[2023-04-09 17:23] LABS: Alanine Aminotransferase 39 IU/L (<35); Albumin 4.2 g/dL (3.5-5.0); Albumin Globulin Ratio 1.4 (1.0-2.8); Alkaline Phosphatase 66 U/L (38-126); Aspartate Aminotransferase 25 IU/L (14-36); BUN Creatinine Ratio 13.8 (6-22); Bilirubin Total 0.4 mg/dL (0.2-1.3); Blood Urea Nitrogen 11 mg/dL (7-17); Calcium 9.5 mg/dL (8.4-10.2); Carbon Dioxide 31 mmol/L (22-32); Chloride 103 mmol/L (98-107); Estimated Glomerular Filt Rate > 60 mL/min (>60); Globulin 3.1 g/dL (1.7-4.1); Glucose 86 mg/dL (70-100); HEMOLYSIS < 15 (0-50); Potassium 4.2 mmol/L (3.4-5.1); Sodium 139 mmol/L (137-145); Total Protein 7.3 g/dL (6.3-8.2)
[2023-04-09 17:50] LABS: TSH w/ Reflex to FT4 0.85 uIU/mL (0.47-4.68)
== END ==
PROVIDERS: PCP Pediatrics; Referring Provider Physician Assistant; Visit Provider Physician Assistant
DX: K76.0 Fatty (change of) liver, not elsewhere classified (principal); N95.1 Menopausal and female climacteric states; R53.83 Other fatigue
CPT/HCPCS: 36415; 80053; 84443; 85025

== ENCOUNTER 2023-04-15 14:00 | Emergency (ER) | payer OTHER, SELFPAY ==
[2022-09-12 09:12] VITALS: BMI 25.0
[2023-04-15 14:01] VITALS: BP 127/56; PULSE 92; RESP 24; O2SAT 100; BMI 30.8
--- NOTE | 2023-04-15 14:17 | DI.US.S_ITS ---
PROCEDURE: US PERIPH VENOUS LOW EXTREM LT INDICATIONS: Left lower leg pain TECHNIQUE: Real-time imaging, as well as color and pulse Doppler interrogation, were performed of the lower extremity deep veins from the inguinal ligament to the popliteal fossa, with documentation of the visualized calf veins. COMPARISON: None. FINDINGS: The common femoral, femoral, popliteal, and the visualized calf veins are normally compressible, and free of intraluminal thrombus. Color and pulse Doppler demonstrate normal phasic intraluminal flow. There is normal augmentation response to distal compression maneuver. IMPRESSION: No findings of lower extremity deep venous thrombosis. Dictated by: Darell Luna M.D. on 04/15/2023 at 14:32 Approved by: Darell Luna M.D. on 04/15/2023 at 14:33
[2023-04-15 14:56] VITALS: PULSE 88
[2023-04-15] MEDS: KETOROLAC 30 MG/ML VIAL IM (15:16)
--- NOTE | 2023-04-15 15:40 | ED.EXTPRO ---
HPI - Extremity Problem <Cindy Elizabeth PA-C - Last Filed: 04/15/23 18:10> General Chief complaint: Extremity Problem,Nontraumatic Stated complaint: leg and arm pain Time Seen by Provider: 04/15/23 14:23 Source: patient Mode of arrival: Ambulatory History of Present Illness HPI Narrative: 42-year-old female with history of left-sided sciatica, disc compression, surgical menopause, fatty liver generalized anxiety presents with concern for left leg pain for 4 months which has been worsening and numbness sensation occasionally occurring in her calf and foot. Patient is also concerned for intermittent left shoulder pain/pain in her left upper back muscle and numbness sensation worse with movement that began as she was driving into the emergency department today. Patient endorses stress and tension related to her chronic pain and other diagnoses for which she is seeking further evaluation. She already has a referral to orthopedics placed by her primary care provider, she sees a pain provider and has a pain contract. She takes gabapentin for her chronic sciatica and has previously had successful steroid injections for this but not for the past 4 years. She denies chest pain, shortness of breath, or any other symptoms. 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 Initially patient states that she did not do anything to injure the area but then states that 4 months ago she had a fall where she landed on her knee and also caught herself with her left arm outstretched but notes ?that would not explain why this is suddenly hurting worse now?. Related Data Home Medications Medication Instructions Recorded Confirmed Aleve 440 mg PO DAILY PRN Pain 03/21/22 04/09/23 Previous Rx's Medication Instructions Recorded sennosides 8.6 mg-docusate sodium 1 tab-cap PO DAILY PRN 03/28/22 50 mg capsule (Senna Plus) Constipation #30 caps albuterol sulfate 90 mcg/actuation 2 puff inhalation QIDP PRN 04/09/23 aerosol inhaler (Ventolin HFA) shortness of breath or wheezing #18 grams estradiol 0.1 mg/24 hr semiweekly 1 patch transdermal 2XW #8 ea 04/09/23 transdermal patch estradiol 1 mg tablet 1 mg PO BID #180 tabs 04/09/23 gabapentin 600 mg tablet 600 mg PO TID #270 tabs 04/09/23 mupirocin 2 % topical ointment 1 applic topical TID #15 grams 04/09/23 sucralfate 1 gram tablet 1 g PO QACHS #368 tabs 04/09/23 terbinafine HCl 250 mg tablet 250 mg PO DAILY #90 tabs 04/09/23 methylphenidate HCl 20 mg tablet 40 mg (2 x 20 mg) PO BID #120 tabs 04/14/23 baclofen 20 mg tablet 20 mg PO BID muscle spasm 7 days 04/15/23 #14 tabs prednisone 20 mg tablet 40 mg (2 x 20 mg) PO DAILY 5 days 04/15/23 #10 tabs Allergies Allergy/AdvReac Type Severity Reaction Status Date / Time adhesive Allergy Severe Swelling, Verified 04/09/23 14:31 redness, rash iodine [IODINE] Allergy Severe I was on Verified 04/09/23 14:31 fire, excruiating pain, rash on skin ketamine Allergy Severe I felt Verified 04/09/23 14:31 the pain, but I could not react. I never want this! latex [LATEX] Allergy Severe Swelling, Verified 04/09/23 14:31 redness, rash morphine [MORPHINE] Allergy Severe Hives Verified 04/09/23 14:31 tramadol Allergy Mild Hives Verified 04/09/23 14:31 amoxicillin [From Augmentin] AdvReac Unknown yeast Verified 04/09/23 14:31 infection clavulanic acid AdvReac Unknown yeast Verified 04/09/23 14:31 [From Augmentin] infection hydromorphone [From DILAUDID] AdvReac Unknown It did Verified 04/09/23 14:31 funny things to my heart Review of Systems <Cindy Elizabeth PA-C - Last Filed: 04/15/23 18:10> Review of Systems Narrative: See HPI Patient History <Cindy Elizabeth PA-C - Last Filed: 04/15/23 18:10> Medical History Fatty liver Anesthesia complication Celiac disease Allergic conjunctivitis Rotator cuff impingement syndrome of right shoulder Hepatic hemangioma Narcolepsy (Unknown) GERD (gastroesophageal reflux disease) (Unknown) Degenerative disc disease (Unknown) Hx of jordan (Unknown) Eczema (1999) Shoulder pain (2015) Fractures (2008) Chronic back pain (Unknown) Anemia (~2001) Surgical History Hx of elbow surgery (~2013) Hx of wrist replacement (~2011) Status post laparoscopic cholecystectomy Status post tubal ligation Family History Child Age: 21 Asthma Heart disease Child Age: 19 ADHD (attention deficit hyperactivity disorder) Child Age: 16 History of developmental delay Father Stroke Diabetes mellitus Mental health problem Grandfather Age: 87 Emphysema/COPD Grandmother Age: 81 Cancer Hypertension Mental health problem Mother Age: 61 Asthma Sister Age: 40 Methamphetamine addiction Asthma Social History household members: spouse and children Smoking Status: Current every day smoker alcohol intake: current Smoking Status: Current every day smoker alcohol intake frequency: holidays/special occasions only Substance Use Type: does not use Exam <Cindy Elizabeth PA-C - Last Filed: 04/15/23 18:10> Narrative Exam Narrative: GENERAL: 42 year old patient appears stated age. Well-developed patient, in mild distress. HEAD: Atraumatic. Normocephalic. EYES: Pupils equal round and reactive. Extraocular motions intact. No scleral icterus. No injection or drainage. ENT: Nose without bleeding, purulent drainage. Throat without erythema, tonsillar hypertrophy or exudate. Airway patent. NECK: Trachea midline. Non tender CARDIOVASCULAR: Regular rate and rhythm without murmurs, gallops, or rubs. RESPIRATORY: Clear to auscultation. Breath sounds equal bilaterally. No wheezes, rales, or rhonchi. GASTROINTESTINAL: Abdomen soft, non-tender, nondistended. EXTREMITIES: There is mild swelling about the right knee without erythema or heat noted. There is tenderness with inconsistent exam findings with palpation about the knee and in the posterior fossa. Patient endorses increased pain with flexion of the knee and extension of the knee. There is mild medial and lateral joint line tenderness. On examination of the left shoulder back and arm, patient has tenderness with very tight and spasming muscles of the rhomboids on the left, she also has very tight and tender muscle at the biceps on the left. Range of motion of the left arm/shoulder is intact, strength is intact. Skin color is pink warm and dry. Sensation is intact. No other edema or joint tenderness. BACK: There is some tenderness in the low mid lumbar back which is chronic per patient, otherwise midline is Nontender without deformity or crepitance. No flank tenderness. NEURO: AOx3. SKIN: No rash or erythema of visible areas Initial Vital Signs Initial Vital Signs: Vital Signs Pulse Rate 92 H 04/15/23 14:01 Respiratory Rate 24 04/15/23 14:01 Blood Pressure 127/56 L 04/15/23 14:01 Pulse Oximetry 100 04/15/23 14:01 Oxygen Delivery Method Room Air 04/15/23 14:01 <Ladonna Murphy MD - Last Filed: 04/15/23 18:21> Initial Vital Signs Initial Vital Signs: Vital Signs Pulse Rate 92 H 04/15/23 14:01 Respiratory Rate 24 04/15/23 14:01 Blood Pressure 127/56 L 04/15/23 14:01 Pulse Oximetry 100 04/15/23 14:01 Oxygen Delivery Method Room Air 04/15/23 14:01 Course <Cindy Elizabeth PA-C - Last Filed: 04/15/23 18:10> Orders Ordered: ED Orders 04/15/23 14:17 US periph venous low extrem lt Stat 04/15/23 15:41 XR knee LT 3V Stat Discontinued Medications Ketorolac Tromethamine (Ketorolac 30 Mg/Ml Vial) 30 mg IM NOW ONE Stop: 04/15/23 14:57 Last Admin: 04/15/23 15:16 Dose: 30 mg Documented By: RB Vital Signs Vital signs: Vital Signs - 8 hr 04/15/23 14:01 04/15/23 14:56 Pulse Rate 92 H Pulse Rate [Left Posterior Tibial] 88 Respiratory Rate 24 Blood Pressure 127/56 L Pulse Oximetry 100 Oxygen Delivery Method Room Air <Ladonna Murphy MD - Last Filed: 04/15/23 18:21> Orders Ordered: ED Orders 04/15/23 14:17 US periph venous low extrem lt Stat 04/15/23 15:41 XR knee LT 3V Stat Discontinued Medications Ketorolac Tromethamine (Ketorolac 30 Mg/Ml Vial) 30 mg IM NOW ONE Stop: 04/15/23 14:57 Last Admin: 04/15/23 15:16 Dose: 30 mg Documented By: RB Vital Signs Vital signs: Vital Signs - 8 hr 04/15/23 14:01 04/15/23 14:56 Pulse Rate 92 H Pulse Rate [Left Posterior Tibial] 88 Respiratory Rate 24 Blood Pressure 127/56 L Pulse Oximetry 100 Oxygen Delivery Method Room Air MDM - Extremity (Nontraumatic) <Cindy Elizabeth PA-C - Last Filed: 04/15/23 18:10> Differential Diagnosis Differential diagnosis: Likely deep vein thrombosis of lower extremity and other (Knee injury, knee pain and swelling, strain, radiculopathy, acute on chronic sciatica, muscle spasm) Imaging Data US - DVT: Radiologist's Impression: [address] [address] Ultrasound Report Signed Patient: Amish Tamez MR#: [id number] : 1980 Acct:[id number] Age/Sex: 42 / F Date of Service: 04/15/23 Loc: ED Accession Number: [id number] Procedure: US periph venous low extrem lt Ordering Provider: Cindy Elizabeth P.A-C PROCEDURE: US PERIPH VENOUS LOW EXTREM LT INDICATIONS: Left lower leg pain TECHNIQUE: Real-time imaging, as well as color and pulse Doppler interrogation, were performed of the lower extremity deep veins from the inguinal ligament to the popliteal fossa, with documentation of the visualized calf veins. COMPARISON: None. FINDINGS: The common femoral, femoral, popliteal, and the visualized calf veins are normally compressible, and free of intraluminal thrombus. Color and pulse Doppler demonstrate normal phasic intraluminal flow. There is normal augmentation response to distal compression maneuver. IMPRESSION: No findings of lower extremity deep venous thrombosis. Dictated by: Darell Luna M.D. on 04/15/2023 at 14:32 Approved by: Darell Luna M.D. on 04/15/2023 at 14:33 Extremity x-ray #1: My Impression: Agree with Radiology interpretation Radiologist's Impression: [address] [address] XRay Report Signed Patient: Amish Tamez MR#: [id number] : 1980 Acct:[id number] Age/Sex: 42 / F Date of Service: 04/15/23 Loc: ED Accession Number: [id number] Procedure: XR knee LT 3V Ordering Provider: Cindy Elizabeth P.A-C PROCEDURE: XR KNEE LT 3V INDICATIONS: left knee pain/swelling, no recent inj TECHNIQUE: 3 views of the knee were acquired. COMPARISON: None. FINDINGS: Bones: No fractures or dislocations. No suspicious bony lesions. Soft tissues: No joint effusion. No suspicious soft tissue calcifications. IMPRESSION: No acute fracture. No osseous lesion. If symptoms and/or clinical suspicion for pathology persist, further assessment with repeat, or advanced imaging (e.g., CT, MRI, or bone scan) may be helpful for further assessment. Dictated by: Nataliya Rodriguez M.D. on 04/15/2023 at 16:08 Approved by: Nataliya Rodriguez M.D. on 04/15/2023 at 16:08 [facility] Narrative Medical decision making narrative: Is a 42-year-old female with chronic pain on a pain contract, left-sided sciatica and disc degeneration of the lumbar region who presents with concern for left leg pain with numbness and tingling radiating down to her left ankle and foot and concern for left shoulder pain worse with movement. No specific injuries known except for 4 months prior. Patient's exam and history are most suspicious for exacerbation of her chronic sciatica on the left. Exam is also most suggestive of muscle tightness and spasming of the rhomboids and deltoid/upper biceps region. I suspect that she may have radiculopathy affecting her left arm or possibly muscle tightness and spasming. DVT ultrasound was obtained given patient had this scheduled previously and has some swelling and pain of the left knee and worsening pain on the left compared to her baseline. Also x-ray of the knee given mild swelling noted and patient endorsing her knee has felt more mobile recently. These returned unremarkable. Patient does receive Toradol today in the emergency department. With some improvement in her pain. X-ray of the shoulder/humerus is not obtained as patient has no injury and exam is most consistent with muscle etiology. Prescription today for short course of prednisone for sciatica/radiculopathy and muscle relaxer. She is advised to follow up closely with her primary care provider, already has a referral for orthopedics/spine, additional pain medicines are not prescribed as she is on a pain contract. Return precautions provided, follow-up plan discussed, all questions answered Discharge Plan Departure Patient Disposition: Home Clinical Impression: Arthralgia of knee, left, Left leg pain, Muscle spasm of left shoulder Radiculopathy Qualifiers: Spinal region: unspecified Qualified Code(s): M54.10 - Radiculopathy, site unspecified Activity Restrictions/Additional Instructions: *You have been diagnosed with [left knee and leg pain, radiculopathy] *What to do: *Please continue to take your regular medications as directed. [ 2] New medication prescriptions sent to your pharmacy: [Prednisone, baclofen] [ ] New medication written as a paper prescription [ ] No new medications given *Please follow up with your primary care provider in 2-3 days, call for an appointment. Let them know you were seen in the Emergency Department and that we ask that you be seen in follow up. We will electronically transmit a record of today's note if your PCP is in our system. Your PCP had ordered an ultrasound for you for your worsening left leg pain that has been present for months, and you came in today to have imaging done more efficiently due to your pain. We did an x-ray of your left knee and an ultrasound of your left leg. There is no evidence of blood clot thankfully, also your x-ray does not show any abnormality. Based on your exam as we discussed I do think that you are having a flare of your sciatic nerve problem, I also think that you are having some tightness and spasming of muscles in your left upper back and shoulder and inflammation, possibly radiculopathy which is causing the tingling sensation in your shoulder and fingers. I did prescribe a short course of steroid medication, you have had this before at least in the form of an injection for your sciatic nerve problems, I would strongly encourage you to not only see your primary care provider but also orthopedic provider sounds like you already have a referral in place for this which is great. I also prescribed a muscle relaxer for you as you have some tight muscles in your upper back and shoulder which I think are spasming and contributing to her discomfort. Please do not take the muscle relaxer with alcohol or before driving or operating any equipment. It sounds like you are aware of other modalities for helping with pain including elevation of your leg trying ice and heat and gentle stretching I would continue with these also Tylenol and Aleve or ibuprofen. *If you do not have a primary care provider please contact the [facility] Resource line at [phone]. They will ask some questions about your medical history and help get you set up with a doctor in the community. *Return to Emergency Department if you should have any new, worsening or concerning symptoms, such as [fever greater than 101 F, shaking chills, worsening pain, persistent vomiting or other bothersome symptoms] Prescriptions: New prednisone 20 mg tablet 40 mg PO DAILY 5 Days Qty: 10 0RF baclofen 20 mg tablet 20 mg PO BID 7 Days Qty: 14 0RF No Action Senna Plus 8.6-50 mg capsule 1 tab-cap PO DAILY PRN (Reason: Constipation) Qty: 30 3RF methylphenidate HCl 20 mg tablet 40 mg PO BID Qty: 120 0RF Hold Instructions: Change to 40mg BID #120 Rx Instructions: 40mg qAM, then 20mg 4 hrs later, then 20mg after another 4 hrs gabapentin 600 mg tablet 600 mg PO TID Qty: 270 3RF sucralfate 1 gram tablet 1 g PO QACHS Qty: 368 3RF terbinafine HCl 250 mg tablet 250 mg PO DAILY Qty: 90 0RF mupirocin 2 % ointment 1 applic topical TID Qty: 15 3RF albuterol sulfate [Ventolin HFA] 90 mcg/actuation HFA aerosol inhaler 2 puff INHALATION QIDP PRN (Reason: shortness of breath or wheezing) Qty: 18 6RF estradiol 0.1 mg/24 hr patch semiweekly 1 patch transdermal 2XW Qty: 8 3RF Rx Instructions: apply 1 patch for 3 days alternating with 1 patch for 4 days each week for 3 wks per 4-wk cycle estradiol 1 mg tablet 1 mg PO BID Qty: 180 3RF Rx Instructions: 1 mg tablet PO BID. Total of 2mg daily. Aleve 440 mg PO DAILY PRN (Reason: Pain) Referrals: Greg Davis MD [Primary Care Provider] - Stand Alone Forms: Patient Portal/API ED Sign-out <Ladonna Murphy MD - Last Filed: 04/15/23 18:21> Cosign ED Attending Cosignature Attestation: I did not see this patient. I was available all times for consultation.
== END 2023-04-15 17:02 | disposition home or self-care (01) ==
PROVIDERS: Emergency Provider Student in an Organized Health Care Education/Training Program; PCP Pediatrics
DX: M54.16 Radiculopathy, lumbar region (principal); M62.838 Other muscle spasm; M25.562 Pain in left knee
CPT/HCPCS: 73562; 93971; 96372; 99283; J1885

== ENCOUNTER → 2024-05-07 13:47 | Outpatient (CLI) | payer BC, SELFPAY ==
[2022-09-12 09:12] VITALS: BMI 25.0
--- NOTE | 2024-05-07 13:49 | DI.MRI.S_ITS ---
PROCEDURE: MR KNEE LT WO CON INDICATIONS: left knee lateral meniscus tear TECHNIQUE: Noncontrast sagittal PD fast spin echo and T2 fast spin echo with fat saturation, sagittal 3-D FLASH with fat saturation; coronal T1 spin echo and PD fast spin echo with fat saturation, and axial PD fast spin echo with fat saturation through the knee. COMPARISON: [facility], CR, XR KNEE LT 3V, 04/15/2023, 15:49. FINDINGS: Image quality: Excellent. Bones: The bone marrow signal is normal. There is no acute fracture or dislocation. Joints: There is no significant knee joint effusion. There is minimal knee osteoarthritis. Fallon's cyst: None. Menisci: The medial meniscus is normal. The lateral meniscus is normal. The posterior root attachments are normal. Cruciate ligaments: The anterior cruciate ligament is normal. The posterior cruciate ligament is normal. Collateral ligaments: The medial collateral ligament complex is normal. The lateral collateral ligament complex is normal. Popliteus Muscle/Tendon: The popliteus muscle and tendon are normal. Extensor mechanism: There is mild low signal thickening of the quadriceps tendon. The patellar tendon is normal. The medial and lateral patellar retinacular attachments are normal. Articular cartilage: There is mild surface fibrillation and partial thickness chondral loss along the medial and lateral patellar facets (8/10). Other: No other acute findings. IMPRESSION: 1. Minimal knee osteoarthritis with associated articular cartilage defects. 2. Mild, chronic quadriceps tendinosis. 3. No other acute MR abnormality of the knee. Dictated by: Gerson Mata M.D. on 05/09/2024 at 10:48 Approved by: Gerson Mata M.D. on 05/09/2024 at 10:58
== END ==
LOC: MRI 13:47
PROVIDERS: PCP Family Medicine; Referring Provider Orthopaedic Surgery; Visit Provider Orthopaedic Surgery
DX: S83.282A Other tear of lateral meniscus, current injury, left knee, initial encounter (principal)
CPT/HCPCS: 73721